=== PATIENT | female | born 1990 | race Caucasian/White ===

== ENCOUNTER 2017-01-17 20:57 | Emergency (ER) | payer BC ==
[~2017-01-17] VITALS: Ht 160 cm; Wt 71.2 kg
[~2017-01-17 20:57] MED LIST: AZIT250T5 PO; CEFT1FRO2 IV; CTLP20T PO; DOXY100C2 PO; DOXY100T2 PO; GUAI118L16; HYDR-3781 PO; HYDR25CA5 PO; METR500T21 PO; PERM60CR4 TP; PRD50T PO; RNT150T PO; SERT50TA9 PO; TRAZ-28 PO; [UNRECOGNIZED DRUG - CODE] TD; rocephin IM/IV
--- NOTE | 2017-01-17 21:09 | ED Cough/URI ---
General Chief Complaint: Fever-Adult/Adol Stated Complaint: FEVER/DIZZINESS Source: patient Exam Limitations: no limitations History of Present Illness Time seen by provider: 21:07 Initial Comments To ER with reports of a fever and dizziness. Fever began yesterday, is consistently over 100 but improves with Tylenol or Motrin. She's had a nonproductive cough since today as well as a sore throat. She denies abdominal pain, diarrhea or constipation, denies vaginal discharge, denies dysuria. Timing/Duration: yesterday Severity/Quality: moderate Associated Symptoms: cough, fever/chills, sore throat Allergies and Home Medications Allergies Coded Allergies: Penicillins (Verified Allergy, Unknown, 07/14/15) Constitutional: see HPI, chills, fever EENTM: see HPI, throat pain Respiratory: see HPI, cough, No hemoptysis, No orthopnea, No phlegm, No short of breath Cardiovascular: no symptoms reported Gastrointestinal: No abdominal pain, No constipation, No diarrhea, No nausea, No vomiting Genitourinary: no symptoms reported, No dysuria, No frequency, No hematuria, No hesitancy : No Musculoskeletal: no symptoms reported Skin: no symptoms reported Psychiatric/Neurological: No Symptoms Reported Hematologic/Lymphatic: No Symptoms Reported Past Meeswvl-Wnbsjc-Rcpiho Hx Patient Social History Type Used: Cigarettes Recent Foreign Travel: No Contact w/Someone Who Travel: No Recent Hopitalizations: No Immunizations Up To Date Tetanus Booster (TDap): More than 5yrs PED Vaccines UTD: No Date of Influenza Vaccine: Jul 17, 2015 Seasonal Allergies Seasonal Allergies: No Surgeries HX Surgeries: Yes Surgeries: Adenoidectomy, Appendectomy Respiratory Hx Respiratory Disorders: No Cardiovascular Hx Cardiac Disorders: Yes (LOW HEART RATE) Neurological Hx Neurological Disorders: No Reproductive System Hx Reproductive Disorders: No Sexually 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Tricamonas, Gonnorhea) HIV/AIDS: No Female Reproductive Disorders: Denies Genitourinary Hx Genitourinary Disorders: No Gastrointestinal Hx Gastrointestinal Disorders: No Gastrointestinal Disorders: Irritable Bowel Musculoskeletal Hx Musculoskeletal Disorders: No Endocrine Hx Endocrine Disorders: No HEENT HX ENT Disorders: No Cancer Hx Cancer: No Psychosocial Hx Psychiatric Problems: Yes (Borderline personality disorder, methamphetamine abuse) Behavioral Health Disorders: Anxiety, Personality Disorder, Depression Integumentary HX Skin/Integumentary Disorder: No Blood Transfusions Hx Blood Disorders: No Adverse Reaction to a Blood Tr: No Family Medical History Significant Family History: No Pertinent Family Hx Family Medial History: Hypertension 19 FATHER Seizure disorder G8 BROTHER Thyroid disease G8 SISTER Physical Exam Vital Signs Vital Sign - Last 12Hours 01/17/17 21:03 Temp 99.0 Pulse 101 Resp 18 B/P (MAP) 118/71 Pulse Ox 96 O2 Delivery Room Air Capillary Refill : General Appearance: WD/WN, no apparent distress Eyes: Bilateral Eye EOMI, Bilateral Eye Normal Inspection, Bilateral Eye PERRL HEENT: PERRL/EOMI, normal ENT inspection Neck: non-tender, full range of motion Respiratory: normal breath sounds, no respiratory distress, no accessory muscle use Cardiovascular: no murmur, tachycardia Gastrointestinal: normal bowel sounds, non tender, soft Extremities: normal range of motion, non-tender Neurologic/Psychiatric: alert, normal mood/affect, oriented x 3 Skin: normal color, warm/dry Progress/Results/Core Measures Results/Orders Lab Results Laboratory Tests Test 01/17/17 21:17 01/17/17 21:21 Range/Units White Blood Count 7.6 4.3-11.0 10^3/uL Red Blood Count 4.21 L 4.35-5.85 10^6/uL Hemoglobin 12.9 11.5-16.0 G/DL Hematocrit 38 35-52 % Mean Corpuscular Volume 89 80-99 FL Mean Corpuscular Hemoglobin 31 25-34 PG Mean Corpuscular Hemoglobin Concent 34 32-36 G/DL Red Cell Distribution Width 12.7 10.0-14.5 % Platelet Count 205 130-400 10^3/uL Mean Platelet Volume 9.4 7.4-10.4 FL Neutrophils (%) (Auto) 79 H 42-75 % Lymphocytes (%) (Auto) 14 12-44 % Monocytes (%) (Auto) 6 0-12 % Eosinophils (%) (Auto) 1 0-10 % Basophils (%) (Auto) 0 0-10 % Neutrophils # (Auto) 6.1 1.8-7.8 X 10^3 Lymphocytes # (Auto) 1.0 1.0-4.0 X 10^3 Monocytes # (Auto) 0.4 0.0-1.0 X 10^3 Eosinophils # (Auto) 0.1 0.0-0.3 10^3/uL Basophils # (Auto) 0.0 0.0-0.1 10^3/uL Sodium Level 137 135-145 MMOL/L Potassium Level 3.6 3.6-5.0 MMOL/L Chloride Level 107 98-107 MMOL/L Carbon Dioxide Level 21 21-32 MMOL/L Anion Gap 9 5-14 MMOL/L Blood Urea Nitrogen 7 7-18 MG/DL Creatinine 0.80 0.60-1.30 MG/DL Estimat Glomerular Filtration Rate > 60 BUN/Creatinine Ratio 9 Glucose Level 113 H 70-105 MG/DL Calcium Level 8.7 8.5-10.1 MG/DL Total Bilirubin 0.6 0.1-1.0 MG/DL Aspartate Amino Transf (AST/SGOT) 28 5-34 U/L Alanine Aminotransferase (ALT/SGPT) 29 0-55 U/L Alkaline Phosphatase 66 40-136 U/L Total Protein 6.8 6.4-8.2 G/DL Albumin 3.9 3.2-4.5 G/DL Monoscreen NEGATIVE NEGATIVE Urine Color YELLOW Urine Clarity CLEAR Urine pH 6 5-9 Urine Specific Mcd[place] 1.015 L 1.016-1.022 Urine Protein 2+ H NEGATIVE Urine Glucose (UA) NEGATIVE NEGATIVE Urine Ketones NEGATIVE NEGATIVE Urine Nitrite NEGATIVE NEGATIVE Urine Bilirubin NEGATIVE NEGATIVE Urine Urobilinogen 1 NORMAL MG/DL Urine Leukocyte Esterase 1+ H NEGATIVE Urine RBC (Auto) 1+ H NEGATIVE Urine RBC 0-2 /HPF Urine WBC 2-5 /HPF Urine Squamous Epithelial Cells 5-10 /HPF Urine Crystals NONE /LPF Urine Bacteria FEW H /HPF Urine Casts NONE /LPF Urine Mucus SMALL H /LPF Urine Culture Indicated NO Urine Opiates Screen NEGATIVE NEGATIVE Urine Oxycodone Screen NEGATIVE NEGATIVE Urine Methadone Screen NEGATIVE NEGATIVE Urine Propoxyphene Screen NEGATIVE NEGATIVE Urine Barbiturates Screen NEGATIVE NEGATIVE Ur Tricyclic Antidepressants Screen NEGATIVE NEGATIVE Urine Phencyclidine Screen NEGATIVE NEGATIVE Urine Amphetamines Screen NEGATIVE NEGATIVE Urine Methamphetamines Screen NEGATIVE NEGATIVE Urine Benzodiazepines Screen NEGATIVE NEGATIVE Urine Cocaine Screen NEGATIVE NEGATIVE Urine Cannabinoids Screen POSITIVE H NEGATIVE My Orders Orders - CLAY JOSE [employer]GETABLE GRADER Cbc With Automated Diff (01/17/17 21:00) Comprehensive Metabolic Panel (01/17/17 21:00) Ua Culture If Indicated (01/17/17 21:00) Urine Bedside (01/17/17 21:00) Saline Lock/Iv-Start (01/17/17 21:00) Monotest (01/17/17 21:00) Drug Screen Stat (Urine) (01/17/17 21:01) Chest Pa/Lat (2 View) (01/17/17 21:07) Blood Culture (01/17/17 21:09) Ns Iv 1000 Ml (Sodium Chloride 0.9%) (01/17/17 21:15) Vital Signs/I&O Vital Sign - Last 12Hours 01/17/17 21:03 Temp 99.0 Pulse 101 Resp 18 B/P (MAP) 118/71 Pulse Ox 96 O2 Delivery Room Air Diagnostic Imaging Diagonstic Imaging: Xray Plain Films/CT/US/NM/MRI: chest Comments NAME: ZORAN SOFIA [facility] REC#: [id number] PT STATUS: REG ER : 1990 PHYSICIAN: CLAY JOSE APRN ADMIT DATE: 01/17/17/ER Signed Date of Exam:01/17/17 CHEST PA/LAT (2 VIEW) INDICATION: Fever, cough with onset 2 days prior.. TECHNIQUE: Two view chest 9:50 PM CORRELATION STUDY: 05/10/2016 FINDINGS: The heart size, mediastinal configuration and pulmonary vasculature are within normal limits. The lungs are clear with no consolidating infiltrate. There is no significant pleural effusion or pneumothorax. Visualized osseous structures are unremarkable. IMPRESSION: 1. Negative for acute abnormality of the chest. Dictated by: Dictated on workstation # [id number] Dict: 01/17/172145 Trans: 01/17/172146 DO [id number] Interpreted by: GIOVANNI POSEY DO Electronically signed by: GIOVANNI POSEY DO 01/17/172146 Departure Communication Progress Notes 2156-alert and oriented and pleasant. Vitals are stable. Discussed the essentially unremarkable lab work with her and male at the bedside. We will let her bag of IV fluids infused then discharged to home with return precautions treating this as a viral syndrome. Impression Impression: Primary Impression: Viral syndrome Disposition: 01 HOME, SELF-CARE Condition: Stable Departure-Patient Inst. Decision time for Depature: 21:52 Referrals: SONALI LEONARDO MD (PCP/Family) Primary Care Physician Patient Instructions: VIRAL SYNDROME Add. Discharge Instructions: 1. Tylenol and Motrin for any pain or fevers 2. Return to ER for any worsening symptoms or other concerns 3. Follow-up with your regular doctor later this week All discharge instructions reviewed with patient and/or family. Voiced understanding. CLAY JOSE APRN January 17, 2017 21:09
[2017-01-17] MEDS ORDERED: NS IV 1000 ML 1,000 ML IV SCH (21:15)
[2017-01-17 21:28] LABS: BASOPHILS % (AUTO) 0 % (0-10); EOSINOPHILS # (AUTO) 0.1 10^3/uL (0.0-0.3); EOSINOPHILS % (AUTO) 1 % (0-10); LYMPHOCYTES % (AUTO) 14 % (12-44); MEAN CORPUSCULAR HEMOGLOBIN 31 PG (25-34); MEAN CORPUSCULAR HGB CONC 34 G/DL (32-36); MEAN CORPUSCULAR VOLUME 89 FL (80-99); MEAN PLATELET VOLUME 9.4 FL (7.4-10.4); MONOCYTES # (AUTO) 0.4 X 10^3 (0.0-1.0); MONOCYTES % (AUTO) 6 % (0-12); NEUTROPHILS # (AUTO) 6.1 X 10^3 (1.8-7.8); NEUTROPHILS % (AUTO) 79 % (42-75); PLATELET COUNT 205 10^3/uL (130-400); RED BLOOD COUNT 4.21 10^6/uL (4.35-5.85); RED CELL DISTRIBUTION WIDTH 12.7 % (10.0-14.5); WHITE BLOOD COUNT 7.6 10^3/uL (4.3-11.0)
[2017-01-17 21:29] LABS: BILIRUBIN,URINE NEGATIVE (NEGATIVE); KETONES,URINE NEGATIVE (NEGATIVE); LEUKOCYTE ESTERASE ,URINE 1+ (NEGATIVE); NITRITE,URINE NEGATIVE (NEGATIVE); PH,URINE 6 (5-9); PROTEIN,URINE 2+ (NEGATIVE); UROBILINOGEN,URINE 1 MG/DL (NORMAL)
[2017-01-17 21:48] LABS: ALANINE AMINOTRANSFERASE 29 U/L (0-55); ALBUMIN 3.9 G/DL (3.2-4.5); ANION GAP 9 MMOL/L (5-14); ASPARTATE AMINO TRANSFERASE 28 U/L (5-34); BILIRUBIN,TOTAL 0.6 MG/DL (0.1-1.0); BLOOD UREA NITROGEN 7 MG/DL (7-18); BUN/CREATININE RATIO 9; CALCIUM 8.7 MG/DL (8.5-10.1); CARBON DIOXIDE 21 MMOL/L (21-32); CHLORIDE 107 MMOL/L (98-107); GFR ESTIMATED > 60; GLUCOSE 113 MG/DL (70-105); POTASSIUM 3.6 MMOL/L (3.6-5.0); SODIUM 137 MMOL/L (135-145); TOTAL PROTEIN 6.8 G/DL (6.4-8.2)
--- NOTE | 2017-01-17 21:50 | Diagnostic Imaging Report ---
INDICATION: Fever, cough with onset 2 days prior.. TECHNIQUE: Two view chest 9:50 PM CORRELATION STUDY: 05/10/2016 FINDINGS: The heart size, mediastinal configuration and pulmonary vasculature are within normal limits. The lungs are clear with no consolidating infiltrate. There is no significant pleural effusion or pneumothorax. Visualized osseous structures are unremarkable. IMPRESSION: 1. Negative for acute abnormality of the chest. Dictated by: Dictated on workstation # [id number]
[2017-01-17 22:20] VITALS: BP 108/68
== END 2017-01-17 22:22 | disposition home or self-care (01) ==
LOC: EDUNIT# 20:57 → ER 20:59
DX: B34.9 Viral infection, unspecified (principal); R42 Dizziness and giddiness; R50.9 Fever, unspecified
CPT/HCPCS: 36415; 71020; 80053; 80306; 81000; 84703; 85025; 86308; 87040; 96360

== ENCOUNTER → 2017-03-25 | Emergency (ER) | payer BC ==
[~2017-03-25] VITALS: Ht 160 cm; Wt 65.8 kg
[~2017-03-25] MED LIST changes: +NS IV 500 ML 500 ML IV ONE
--- NOTE | 2017-03-25 01:57 | ED Syncope ---
General Chief Complaint: Head/Cervical Problems Stated Complaint: PASSED OUT ON [id number],NAUSEA,LIGHT HEADED Nursing Triage Note: patient reports passed out and hit her head at 1600 on 03/24. patient reports going to sleep and when she woke up she remained to have nausea and a headache Source of Information: Patient, Other Exam Limitations: No Limitations History of Present Illness Time Seen by Provider: 01:53 Initial Comments Patient reports the past 2-3 days she has felt malaise but no pain, shortness of breath, chest pain, dysuria, constipation, diarrhea, rash, fever, chills. She has felt sweaty at night and earlier in the evening around 4:00 she passed out and fell. She states she has not had her head and was immediately awoke again. She is not having any amnesia. She's went to have something to eat but that didn't make her feeling better. She has no medical issues. She's not had any medicines. She smokes about a pack a day. She feels that she is maybe a little dehydrated. No useful family history. No one around has been sick and she has not traveled or drank out of any unsafe water sources. She remarks she has been drinking less fluids lately. Allergies and Home Medications Allergies Coded Allergies: Penicillins (Verified Allergy, Unknown, 07/14/15) Home Medications No Active Prescriptions or Reported Meds Constitutional: No chills, No diaphoresis, No fever EENTM: No ear pain, No eye pain, No nose congestion, No nose pain Respiratory: No cough, No short of breath Cardiovascular: No chest pain, No edema Gastrointestinal: No abdominal pain, No constipation, No diarrhea, No nausea Genitourinary: No discharge, No dysuria : No (2 negative tests at home in the past day.) Control/STD Prophylaxis: None Musculoskeletal: No back pain, No joint pain Skin: No pruritus, No rash Psychiatric/Neurological: Denies Headache, Denies Numbness, Denies Paresthesia , Denies Seizure Past Whzxjsk-Hehvgt-Hpnvmu Hx Patient Social History Alcohol Use: Occasionally Uses Recreational Drug Use: No (history of meth) Smoking Status: Current Everyday Smoker Type Used: Cigarettes 2nd Hand Smoke Exposure: Yes Recent Foreign Travel: No Contact w/Someone Who Travel: No Recent Infectious Disease Expo: No Recent Hopitalizations: No Immunizations Up To Date Tetanus Booster (TDap): More than 5yrs PED Vaccines UTD: No Date of Influenza Vaccine: Jul 17, 2015 Seasonal Allergies Seasonal Allergies: No Surgeries HX Surgeries: Yes Surgeries: Adenoidectomy, Appendectomy Respiratory Hx Respiratory Disorders: No Cardiovascular Hx Cardiac Disorders: Yes (LOW HEART RATE) Neurological Hx Neurological Disorders: No Reproductive System Hx Reproductive Disorders: No Sexually 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Tricamonas, Gonnorhea) HIV/AIDS: No Female Reproductive Disorders: Denies Genitourinary Hx Genitourinary Disorders: No Gastrointestinal Hx Gastrointestinal Disorders: No Gastrointestinal Disorders: Irritable Bowel Musculoskeletal Hx Musculoskeletal Disorders: No Endocrine Hx Endocrine Disorders: No HEENT HX ENT Disorders: No Cancer Hx Cancer: No Psychosocial Hx Psychiatric Problems: Yes (Borderline personality disorder, methamphetamine abuse) Behavioral Health Disorders: Anxiety, Personality Disorder, Depression Integumentary HX Skin/Integumentary Disorder: No Blood Transfusions Hx Blood Disorders: No Adverse Reaction to a Blood Tr: No Family Medical History Significant Family History: No Pertinent Family Hx Family Medial History: Hypertension 19 FATHER Seizure disorder G8 BROTHER Thyroid disease G8 SISTER Physical Exam Vital Signs Vital Sign - Last 12Hours 03/25/17 03/25/17 01:35 03:20 Temp 97.5 Pulse 55 Resp 18 B/P (MAP) 109/72 Pulse Ox 98 O2 Delivery Room Air Capillary Refill : Less Than 3 Seconds General Appearance: No Apparent Distress, WD/WN HEENT: PERRL/EOMI, TMs Normal, Normal ENT Inspection, Pharynx Normal Neck: Full Range of Motion, Supple Cardiovascular: Regular Rate, Rhythm, No Edema, No Gallop, No Murmur, Normal Peripheral Pulses Respiratory: Chest Non Tender, Lungs Clear, Normal Breath Sounds Gastrointestinal: Normal Bowel Sounds, Non Tender, Soft Back: Normal Inspection, No CVA Tenderness Extremities: Normal Capillary Refill, No Pedal Edema Neurologic/Psychiatric: Alert, Oriented x3, credit review manager II-XII Norm as Tested Cranial Nerves: Normal Hearing, Normal Speech Coordination/Gait: Normal Gait Motor/Sensory: No Motor Deficit, No Sensory Deficit Skin: Normal Color, Warm/Dry Lymphatic: No Adenopathy Progress/Results/Core Measures Results/Orders Lab Results Laboratory Tests Test 03/25/17 02:00 03/25/17 02:10 Range/Units Urine Color YELLOW Urine Clarity CLEAR Urine pH 6 5-9 Urine Specific [place] 1.020 1.016-1.022 Urine Protein 1+ H NEGATIVE Urine Glucose (UA) NEGATIVE NEGATIVE Urine Ketones NEGATIVE NEGATIVE Urine Nitrite NEGATIVE NEGATIVE Urine Bilirubin NEGATIVE NEGATIVE Urine Urobilinogen NORMAL NORMAL MG/DL Urine Leukocyte Esterase 1+ H NEGATIVE Urine RBC (Auto) NEGATIVE NEGATIVE Urine RBC NONE /HPF Urine WBC RARE /HPF Urine Squamous Epithelial Cells 2-5 /HPF Urine Crystals NONE /LPF Urine Bacteria TRACE /HPF Urine Casts NONE /LPF Urine Mucus SMALL H /LPF Urine Culture Indicated NO White Blood Count 10.1 4.3-11.0 10^3/uL Red Blood Count 4.04 L 4.35-5.85 10^6/uL Hemoglobin 12.0 11.5-16.0 G/DL Hematocrit 36 35-52 % Mean Corpuscular Volume 90 80-99 FL Mean Corpuscular Hemoglobin 30 25-34 PG Mean Corpuscular Hemoglobin Concent 33 32-36 G/DL Red Cell Distribution Width 12.8 10.0-14.5 % Platelet Count 280 130-400 10^3/uL Mean Platelet Volume 9.3 7.4-10.4 FL Neutrophils (%) (Auto) 40 L 42-75 % Lymphocytes (%) (Auto) 48 H 12-44 % Monocytes (%) (Auto) 7 0-12 % Eosinophils (%) (Auto) 5 0-10 % Basophils (%) (Auto) 1 0-10 % Neutrophils # (Auto) 4.1 1.8-7.8 X 10^3 Lymphocytes # (Auto) 4.8 H 1.0-4.0 X 10^3 Monocytes # (Auto) 0.7 0.0-1.0 X 10^3 Eosinophils # (Auto) 0.5 H 0.0-0.3 10^3/uL Basophils # (Auto) 0.1 0.0-0.1 10^3/uL Sodium Level 141 135-145 MMOL/L Potassium Level 3.5 L 3.6-5.0 MMOL/L Chloride Level 108 H 98-107 MMOL/L Carbon Dioxide Level 22 21-32 MMOL/L Anion Gap 11 5-14 MMOL/L Blood Urea Nitrogen 13 7-18 MG/DL Creatinine 0.82 0.60-1.30 MG/DL Estimat Glomerular Filtration Rate > 60 BUN/Creatinine Ratio 16 Glucose Level 110 H 70-105 MG/DL Calcium Level 9.2 8.5-10.1 MG/DL Magnesium Level 2.4 1.8-2.4 MG/DL Total Bilirubin 0.4 0.1-1.0 MG/DL Aspartate Amino Transf (AST/SGOT) 15 5-34 U/L Alanine Aminotransferase (ALT/SGPT) 13 0-55 U/L Alkaline Phosphatase 67 40-136 U/L C-Reactive Protein High Sensitivity 0.08 0.00-0.50 MG/DL Total Protein 7.0 6.4-8.2 GM/DL Albumin 4.1 3.2-4.5 GM/DL My Orders Orders - GINGER LEACH Cbc With Automated Diff (03/25/17 01:57) Comprehensive Metabolic Panel (03/25/17 01:57) Hs C Reactive Protein (03/25/17 01:57) Magnesium (03/25/17 01:57) Ua Culture If Indicated (03/25/17 01:57) Urine Bedside (03/25/17 01:57) Saline Lock/Iv-Start (03/25/17 01:57) Ns Iv 500 Ml (Sodium Chloride 0.9%) (03/25/17 01:57) Medications Given in ED Current Medications Medications Dose Ordered Sig/Eloy Route Start Time Stop Time Status Last Admin Dose Admin Sodium Chloride 500 ml @ 0 mls/hr Q0M ONCE IV 03/25/17 01:57 03/25/17 01:59 DC 03/25/17 02:12 0 MLS/HR Vital Signs/I&O Vital Sign - Last 12Hours 03/25/17 03/25/17 01:35 03:20 Temp 97.5 Pulse 55 68 Resp 18 20 B/P (MAP) 109/72 Pulse Ox 98 100 O2 Delivery Room Air Blood Pressure Mean: 84 Progress Note : Time: 03:08 Progress Note Labs, exam and urine did not demonstrate any evidence of infection. Patient's sugars are normal. She has no history of diabetes. HCG was negative. We have given her some fluids and she says she feels better so we'll let her go home some strict return precautions. She had a fall and passed out but there is no neurologic symptoms and sugars does not have a contusion or other evidence of external head injury. At this time would not image her head unless she changes from her baseline. Departure Impression Impression: Primary Impression: Syncope, vasovagal Additional Impression: Dehydration Disposition: 01 HOME, SELF-CARE Condition: Improved Departure-Patient Inst. Decision time for Depature: 03:16 Referrals: SONALI LEONARDO MD (PCP/Family) Primary Care Physician Patient Instructions: Syncope (Fainting) (DC) Add. Discharge Instructions: I suspect that you are dehydrated. You should be encouraged to drink plenty of fluids. Eat some bananas or drink some Gatorade as her potassium was mildly low. He should also decrease or quit smoking altogether. If your symptoms continue despite these interventions you should follow-up with Dr. Leonardo. If you have other concerns he should also follow-up with Dr. Leonardo. If he started having new or worrisome symptoms such as a high fever or nausea and vomiting or chest pain or shortness of breath he should return to the ER immediately. All discharge instructions reviewed with patient and/or family. Voiced understanding. Scripts No Active Prescriptions or Reported Meds Copy Copies To 1: SONALI LEONARDO MD, TITUS J Mar 25, 2017 01:57
[2017-03-25 02:08] LABS: BILIRUBIN,URINE NEGATIVE (NEGATIVE); KETONES,URINE NEGATIVE (NEGATIVE); LEUKOCYTE ESTERASE ,URINE 1+ (NEGATIVE); NITRITE,URINE NEGATIVE (NEGATIVE); PH,URINE 6 (5-9); PROTEIN,URINE 1+ (NEGATIVE); UROBILINOGEN,URINE NORMAL (NORMAL)
[2017-03-25 02:15] LABS: WBC,URINE RARE /HPF
[2017-03-25 02:18] LABS: BASOPHILS # (AUTO) 0.1 10^3/uL (0.0-0.1); BASOPHILS % (AUTO) 1 % (0-10); EOSINOPHILS # (AUTO) 0.5 10^3/uL (0.0-0.3); EOSINOPHILS % (AUTO) 5 % (0-10); LYMPHOCYTES # (AUTO) 4.8 X 10^3 (1.0-4.0); LYMPHOCYTES % (AUTO) 48 % (12-44); MEAN CORPUSCULAR HEMOGLOBIN 30 PG (25-34); MEAN CORPUSCULAR HGB CONC 33 G/DL (32-36); MEAN CORPUSCULAR VOLUME 90 FL (80-99); MEAN PLATELET VOLUME 9.3 FL (7.4-10.4); MONOCYTES # (AUTO) 0.7 X 10^3 (0.0-1.0); MONOCYTES % (AUTO) 7 % (0-12); NEUTROPHILS # (AUTO) 4.1 X 10^3 (1.8-7.8); NEUTROPHILS % (AUTO) 40 % (42-75); PLATELET COUNT 280 10^3/uL (130-400); RED BLOOD COUNT 4.04 10^6/uL (4.35-5.85); RED CELL DISTRIBUTION WIDTH 12.8 % (10.0-14.5); WHITE BLOOD COUNT 10.1 10^3/uL (4.3-11.0)
[2017-03-25 02:46] LABS: ALANINE AMINOTRANSFERASE 13 U/L (0-55); ALBUMIN 4.1 GM/DL (3.2-4.5); ANION GAP 11 MMOL/L (5-14); ASPARTATE AMINO TRANSFERASE 15 U/L (5-34); BILIRUBIN,TOTAL 0.4 MG/DL (0.1-1.0); BLOOD UREA NITROGEN 13 MG/DL (7-18); BUN/CREATININE RATIO 16; CALCIUM 9.2 MG/DL (8.5-10.1); CARBON DIOXIDE 22 MMOL/L (21-32); CHLORIDE 108 MMOL/L (98-107); CREATININE SERUM 0.82 MG/DL (0.60-1.30); GFR ESTIMATED > 60; GLUCOSE 110 MG/DL (70-105); MAGNESIUM 2.4 MG/DL (1.8-2.4); POTASSIUM 3.5 MMOL/L (3.6-5.0); SODIUM 141 MMOL/L (135-145); hs C REACTIVE PROTEIN 0.08 MG/DL (0.00-0.50)
[2017-03-25 03:20] VITALS: BP 108/62
--- OUTSIDE RECORDS SUMMARY | 2017-03-28 08:39 | XMS REPORT | Continuity of Care Document ---
Author Author [employer] Organization [facility] Address Unknown Phone Unavailable Care Team Providers Care Filling Machine Set Up Mechanic Name Role Phone [employer] Unavailable Unavailable Problems Problem Status Onset Date Classification Date Reported Comments Source Tobacco user (finding) Active Problem 08/02/2013 1Added by Discern Expert based on Social History Documentation [facility] Medications Allergies, Adverse Reactions, Alerts Substance Category Reaction Severity Reaction type Status Date Reported Comments Source penicillin drug allergy Allergy Active [employer], [facility] Immunizations Results Vital Signs Encounters Location Location Details Encounter Type Encounter Number Reason For Visit Attending Provider ADM Date DC Date Status Source [facility] [id number] Emergency [id number] Evgeny Campbell 05/05/2013 05/05/2013 Active [employer] [facility] [id number] Emergency [id number] ROCK FISHER 05/31/2013 Active [facility] [facility] [id number] Emergency [id number] Kayden Conrad 06/19/2013 Active [employer] [facility] [id number] Emergency [id number] Kayden Conrad 06/19/2013 Active [employer] [facility] [id number] Emergency [id number] Kayden Conrad 06/20/2013 Active [employer] [facility] [id number] Emergency [id number] Kayden Conrad 06/20/2013 Active [facility] [facility] [id number] Emergency [id number] Zaid Henriquez 06/21/2013 06/21/2013 Active [facility] [id number] Emergency [id number] Nancy Macdonald 07/08/2013 07/08/2013 Active [facility] [id number] Emergency [id number] Evgeny Campbell 07/28/2013 07/28/2013 [facility] Procedures Plan of Care Social History Assessment and Plan Family History Value Date Source Advance Directives Order Name Results Value Date Source
--- OUTSIDE RECORDS SUMMARY | 2017-03-28 08:40 | XMS REPORT | Continuity of Care Document ---
Author Author [facility] Organization [facility] Address Unknown Phone Unavailable Allergies Active Description Code Type Severity Reaction Onset Reported/Identified Relationship to Patient Clinical Status Yes No Known Drug Allergies [id number] Drug Allergy Unknown N/ A 10/27/2011 Yes Penicillins [id number] Drug Allergy Unknown N/A 07/14/2015 Medications Problems Date Dx Coded Attending Type Code Diagnosis Diagnosed By 10/28/2011 Ot 708.9 URTICARIA NOS 02/24/2012 Ot 845.00 SPRAIN OF ANKLE NOS 02/24/2012 Ot 959.7 LOWER LEG INJURY NOS 02/24/2012 Ot E000.8 OTHER EXTERNAL CAUSE STATUS 02/24/2012 Ot E007.3 ACTIVITIES INVOLVING BASEBALL 02/24/2012 Ot E849.4 ACCID IN RECREATION AREA 02/24/2012 Ot E927.0 OVEREXERTION FROM SUDDEN STRENUOUS MOVEM 07/17/2015 JORDEN ROE, SONALI R Ot A59.01 07/17/2015 SONALI LEONARDO MD R Ot F17.210 07/17/2015 SONALI LEONARDO MD R Ot N73.9 07/17/2015 SONALI LEONARDO MD Ot 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 07/17/2015 SONALI LEONARDO MD R Ot F17.210 NICOTINE DEPENDENCE, CIGARETTES, UNCOMPL 07/17/2015 JORDEN ROE, SONALI R Ot N73.9 FEMALE PELVIC INFLAMMATORY DISEASE, UNSP 07/17/2015 JORDEN ROE, SONALI R Ot Z23 ENCOUNTER FOR IMMUNIZATION 07/21/2015 JORDEN ROE, SONALI Velasco Ot D64.9 ANEMIA, UNSPECIFIED 07/21/2015 SONALI LEONARDO MD R Ot E87.6 HYPOKALEMIA 07/21/2015 SONALI LEONARDO MD R Ot F17.210 NICOTINE DEPENDENCE, CIGARETTES, UNCOMPL 07/21/2015 JORDEN ROE, SONALI R Ot F32.9 MAJOR DEPRESSIVE DISORDER, SINGLE EPISOD 07/21/2015 JORDEN ROE, SONALI R Ot F41.9 ANXIETY DISORDER, UNSPECIFIED 07/21/2015 JORDEN ROE, SONALI R Ot I49.5 SICK SINUS SYNDROME 07/21/2015 JORDEN ROE, SOANLI R Ot J90 PLEURAL EFFUSION, NOT ELSEWHERE CLASSIFI 07/21/2015 SONALI LEONARDO MD R Ot K81.2 ACUTE CHOLECYSTITIS WITH CHRONIC CHOLECY 07/21/2015 SONALI LEONARDO MD R Ot N73.9 FEMALE PELVIC INFLAMMATORY DISEASE, UNSP 07/21/2015 SONALI LEONARDO MD R Ot R09.02 HYPOXEMIA 07/21/2015 SONALI LEONARDO MD R Ot Z82.49 FAMILY HX OF ISCHEM HEART DIS AND OTH DI 05/12/2016 SONALI LEONARDO MD R Ot E87.6 HYPOKALEMIA 05/12/2016 JORDEN ROE, SONALI R Ot 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, 05/12/2016 SONALI LEONARDO MD R Ot F41.9 ANXIETY DISORDER, UNSPECIFIED 05/12/2016 SONALI LEONARDO MD R Ot G24.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 05/12/2016 SONALI LEONARDO MD R Ot L73.2 HIDRADENITIS SUPPURATIVA 01/17/2017 CLAY JOSE APRN Ot B34.9 VIRAL INFECTION, UNSPECIFIED 01/17/2017 CLAY JOSE APRN Ot J02.9 ACUTE PHARYNGITIS, UNSPECIFIED 01/17/2017 CLAY JOSE APRN Ot R42 DIZZINESS AND GIDDINESS 01/17/2017 CLAY JOSE APRN Ot R50.9 FEVER, UNSPECIFIED 01/18/2017 CLAY JOSE APRN Ot B34.9 VIRAL INFECTION, UNSPECIFIED 01/18/2017 CLAY JOSE APRN Ot J02.9 ACUTE PHARYNGITIS, UNSPECIFIED 01/18/2017 CLAY JOSE APRN Ot R42 DIZZINESS AND GIDDINESS 01/18/2017 CLAY JOSE APRN Ot R50.9 FEVER, UNSPECIFIED Procedures Code Description Performed By Performed On [id number] RESECTION OF GALLBLADDER, PERCUTANEOUS E 07/19/2015 [id number] RESPIRATORY VENTILATION, LESS THAN 24 CO 07/19/2015 Results Test Result Range Serum or plasma C reactive protein measurement (mass/volume) - 05/10/16 11:30 Serum or plasma C reactive protein measurement (mass/volume) 0.67 mg/dL 0.00-0.50 Complete blood count (CBC) with automated white blood cell (WBC) differential - 05/10/16 11:50 Blood leukocytes automated count (number/volume) 16.1 10*3/ uL 4.3-11.0 Blood erythrocytes automated count (number/volume) 4.43 10*6 /uL 4.35-5.85 Venous blood hemoglobin measurement (mass/volume) 13.6 g/dL 11.5-16.0 Blood hematocrit (volume fraction) 39 % 35-52 Automated erythrocyte mean corpuscular volume 87 [foz_us] 80-99 Automated erythrocyte mean corpuscular hemoglobin (mass per erythrocyte) 31 pg 25-34 Automated erythrocyte mean corpuscular hemoglobin concentration measurement ( mass/volume) 35 g/dL 32-36 Automated erythrocyte distribution width ratio 12.7 % 10.0-14.5 Automated blood platelet count (count/volume) 318 10*3/uL 130-400 Automated blood platelet mean volume measurement 9.6 [foz_us ] 7.4-10.4 Automated blood neutrophils/100 leukocytes 63 % 42-75 Automated blood lymphocytes/100 leukocytes 27 % 12-44 Blood monocytes/100 leukocytes 7 % 0-12 Automated blood eosinophils/100 leukocytes 3 % 0-10 Automated blood basophils/100 leukocytes 0 % 0-10 Blood neutrophils automated count (number/volume) 10.2 10*3 1.8-7.8 Blood lymphocytes automated count (number/volume) 4.3 10*3 1.0-4.0 Blood monocytes automated count (number/volume) 1.1 10*3 0.0-1.0 Automated eosinophil count 0.6 10*3/uL 0.0-0.3 Automated blood basophil count (count/volume) 0.1 10*3/uL 0.0-0.1 Serum or plasma choriogonadotropin ( test) detection - 05/10/16 11:50 Serum or plasma choriogonadotropin ( test) detection NEGATIVE NEGATIVE Comprehensive metabolic panel - 05/10/16 11:50 Serum or plasma sodium measurement (moles/volume) 136 mmol/ L 135-145 Serum or plasma potassium measurement (moles/volume) 3.1 mmol/L 3.6-5.0 Serum or plasma chloride measurement (moles/volume) 104 mmol /L 98-107 Carbon dioxide 21 mmol/L 21-32 Serum or plasma anion gap determination (moles/volume) 11 mmol/L 5-14 Serum or plasma urea nitrogen measurement (mass/volume) 8 mg /dL 7-18 Serum or plasma creatinine measurement (mass/volume) 0.76 mg /dL 0.60-1.30 Serum or plasma urea nitrogen/creatinine mass ratio 11 NRG Serum or plasma creatinine measurement with calculation of estimated glomerular filtration rate > NRG Serum or plasma glucose measurement (mass/volume) 103 mg/dL 70-105 Serum or plasma calcium measurement (mass/volume) 9.7 mg/dL 8.5-10.1 Serum or plasma total bilirubin measurement (mass/volume) 1.0 mg/dL 0.1-1.0 Serum or plasma alkaline phosphatase measurement (enzymatic activity/volume) 91 U/L 40-136 Serum or plasma aspartate aminotransferase measurement (enzymatic activity/ volume) 17 U/L 5-34 Serum or plasma alanine aminotransferase measurement (enzymatic activity/volume ) 18 U/L 0-55 Serum or plasma protein measurement (mass/volume) 7.6 g/dL 6.4-8.2 Serum or plasma albumin measurement (mass/volume) 4.4 g/dL 3.2-4.5 Serum or plasma creatine kinase measurement (enzymatic activity/volume) - 05/10 11:50 Serum or plasma creatine kinase measurement (enzymatic activity/volume) 74 U/L 29-168 Serum or plasma troponin i.cardiac measurement (mass/volume) - 05/10/16 11:50 Serum or plasma troponin i.cardiac measurement (mass/volume) < ng/mL <0.30 Serum or plasma salicylates measurement (mass/volume) - 05/10/16 11:50 Serum or plasma salicylates measurement (mass/volume) < mg/ dL 5.0-20.0 Serum or plasma acetaminophen measurement (mass/volume) - 05/10/16 11:50 Serum or plasma acetaminophen measurement (mass/volume) < ug /mL 10-30 Serum or plasma ethanol measurement (mass/volume) - 05/10/16 11:50 Serum or plasma ethanol measurement (mass/volume) < mg/dL <10 Blood manual differential performed detection - 05/10/16 11:50 Blood monocytes/100 leukocytes 3 % NRG Manual blood segmented neutrophils/100 leukocytes 59 % NRG Blood band neutrophils/100 leukocytes 0 % NRG Manual blood lymphocytes/100 leukocytes 33 % NRG Manual eosinophils/100 leukocytes in nose 5 % NRG Manual blood basophils/100 leukocytes 0 % NRG Blood erythrocyte morphology finding identification NORMAL NRG Capillary blood glucose measurement by glucometer (mass/volume) - 05/10/16 12: 00 Capillary blood glucose measurement by glucometer (mass/volume) 104 mg/dL 70-110 Urine drug screening test - 05/10/16 12:20 Urine acetaminophen detection by screening method NEGATIVE NEGATIVE Urine phencyclidine detection by screening method NEGATIVE NEGATIVE Urine benzodiazepines detection by screening method NEGATIVE NEGATIVE Urine cocaine detection NEGATIVE NEGATIVE Urine amphetamines detection by screening method NEGATIVE NEGATIVE Urine methamphetamine detection by screening method POSITIVE NEGATIVE Urine cannabinoids detection by screening method NEGATIVE NEGATIVE Urine opiates detection by screening method NEGATIVE NEGATIVE Urine barbiturates detection NEGATIVE NEGATIVE Screening urine tricyclic antidepressants detection NEGATIVE NEGATIVE Urine methadone detection by screening method NEGATIVE NEGATIVE Bacterial blood culture - 05/10/16 12:50 QUANTITY OF GROWTH Isolated NRG Bacterial blood culture [id number] NRG Bacterial blood culture - 05/10/16 13:39 Bacterial blood culture NG NRG Methicillin resistant Staphylococcus aureus (MRSA) screening culture - 17:44 MRSA SCREEN RESULT MRSA ISOLATED NRG Complete blood count (CBC) with automated white blood cell (WBC) differential - 05/11/16 03:55 Blood leukocytes automated count (number/volume) 8.1 10*3/ uL 4.3-11.0 Blood erythrocytes automated count (number/volume) 3.69 10*6 /uL 4.35-5.85 Venous blood hemoglobin measurement (mass/volume) 11.2 g/dL 11.5-16.0 Blood hematocrit (volume fraction) 34 % 35-52 Automated erythrocyte mean corpuscular volume 91 [foz_us] 80-99 Automated erythrocyte mean corpuscular hemoglobin (mass per erythrocyte) 30 pg 25-34 Automated erythrocyte mean corpuscular hemoglobin concentration measurement ( mass/volume) 33 g/dL 32-36 Automated erythrocyte distribution width ratio 12.8 % 10.0-14.5 Automated blood platelet count (count/volume) 246 10*3/uL 130-400 Automated blood platelet mean volume measurement 9.7 [foz_us ] 7.4-10.4 Automated blood neutrophils/100 leukocytes 38 % 42-75 Automated blood lymphocytes/100 leukocytes 50 % 12-44 Blood monocytes/100 leukocytes 8 % 0-12 Automated blood eosinophils/100 leukocytes 4 % 0-10 Automated blood basophils/100 leukocytes 0 % 0-10 Blood neutrophils automated count (number/volume) 3.0 10*3 1.8-7.8 Blood lymphocytes automated count (number/volume) 4.0 10*3 1.0-4.0 Blood monocytes automated count (number/volume) 0.6 10*3 0.0-1.0 Automated eosinophil count 0.3 10*3/uL 0.0-0.3 Automated blood basophil count (count/volume) 0.0 10*3/uL 0.0-0.1 Comprehensive metabolic panel - 05/11/16 03:55 Serum or plasma sodium measurement (moles/volume) 139 mmol/ L 135-145 Serum or plasma potassium measurement (moles/volume) 4.1 mmol/L 3.6-5.0 Serum or plasma chloride measurement (moles/volume) 114 mmol /L 98-107 Carbon dioxide 18 mmol/L 21-32 Serum or plasma anion gap determination (moles/volume) 7 mmol/L 5-14 Serum or plasma urea nitrogen measurement (mass/volume) 5 mg /dL 7-18 Serum or plasma creatinine measurement (mass/volume) 0.66 mg /dL 0.60-1.30 Serum or plasma urea nitrogen/creatinine mass ratio 8 NRG Serum or plasma creatinine measurement with calculation of estimated glomerular filtration rate > NRG Serum or plasma glucose measurement (mass/volume) 103 mg/dL 70-105 Serum or plasma calcium measurement (mass/volume) 8.5 mg/dL 8.5-10.1 Serum or plasma total bilirubin measurement (mass/volume) 0.4 mg/dL 0.1-1.0 Serum or plasma alkaline phosphatase measurement (enzymatic activity/volume) 60 U/L 40-136 Serum or plasma aspartate aminotransferase measurement (enzymatic activity/ volume) 11 U/L 5-34 Serum or plasma alanine aminotransferase measurement (enzymatic activity/volume ) 12 U/L 0-55 Serum or plasma protein measurement (mass/volume) 5.5 g/dL 6.4-8.2 Serum or plasma albumin measurement (mass/volume) 3.3 g/dL 3.2-4.5 Complete blood count (CBC) with automated white blood cell (WBC) differential - 01/17/17 21:17 Blood leukocytes automated count (number/volume) 7.6 10*3/ uL 4.3-11.0 Blood erythrocytes automated count (number/volume) 4.21 10*6 /uL 4.35-5.85 Venous blood hemoglobin measurement (mass/volume) 12.9 g/dL 11.5-16.0 Blood hematocrit (volume fraction) 38 % 35-52 Automated erythrocyte mean corpuscular volume 89 [foz_us] 80-99 Automated erythrocyte mean corpuscular hemoglobin (mass per erythrocyte) 31 pg 25-34 Automated erythrocyte mean corpuscular hemoglobin concentration measurement ( mass/volume) 34 g/dL 32-36 Automated erythrocyte distribution width ratio 12.7 % 10.0-14.5 Automated blood platelet count (count/volume) 205 10*3/uL 130-400 Automated blood platelet mean volume measurement 9.4 [foz_us ] 7.4-10.4 Automated blood neutrophils/100 leukocytes 79 % 42-75 Automated blood lymphocytes/100 leukocytes 14 % 12-44 Blood monocytes/100 leukocytes 6 % 0-12 Automated blood eosinophils/100 leukocytes 1 % 0-10 Automated blood basophils/100 leukocytes 0 % 0-10 Blood neutrophils automated count (number/volume) 6.1 10*3 1.8-7.8 Blood lymphocytes automated count (number/volume) 1.0 10*3 1.0-4.0 Blood monocytes automated count (number/volume) 0.4 10*3 0.0-1.0 Automated eosinophil count 0.1 10*3/uL 0.0-0.3 Automated blood basophil count (count/volume) 0.0 10*3/uL 0.0-0.1 Serum heterophile antibody titer - 01/17/17 21:17 Serum heterophile antibody titer NEGATIVE NEGATIVE Comprehensive metabolic panel - 01/17/17 21:17 Serum or plasma sodium measurement (moles/volume) 137 mmol/ L 135-145 Serum or plasma potassium measurement (moles/volume) 3.6 mmol/L 3.6-5.0 Serum or plasma chloride measurement (moles/volume) 107 mmol /L 98-107 Carbon dioxide 21 mmol/L 21-32 Serum or plasma anion gap determination (moles/volume) 9 mmol/L 5-14 Serum or plasma urea nitrogen measurement (mass/volume) 7 mg /dL 7-18 Serum or plasma creatinine measurement (mass/volume) 0.80 mg /dL 0.60-1.30 Serum or plasma urea nitrogen/creatinine mass ratio 9 NRG Serum or plasma creatinine measurement with calculation of estimated glomerular filtration rate > NRG Serum or plasma glucose measurement (mass/volume) 113 mg/dL 70-105 Serum or plasma calcium measurement (mass/volume) 8.7 mg/dL 8.5-10.1 Serum or plasma total bilirubin measurement (mass/volume) 0.6 mg/dL 0.1-1.0 Serum or plasma alkaline phosphatase measurement (enzymatic activity/volume) 66 U/L 40-136 Serum or plasma aspartate aminotransferase measurement (enzymatic activity/ volume) 28 U/L 5-34 Serum or plasma alanine aminotransferase measurement (enzymatic activity/volume ) 29 U/L 0-55 Serum or plasma protein measurement (mass/volume) 6.8 g/dL 6.4-8.2 Serum or plasma albumin measurement (mass/volume) 3.9 g/dL 3.2-4.5 Complete urinalysis with reflex to culture - 01/17/17 21:21 Urine color determination YELLOW NRG Urine clarity determination CLEAR NRG Urine pH measurement by test strip 6 5- 9 Specific gravity of urine by test strip 1.015 1.016-1.022 Urine protein assay by test strip, semi-quantitative 2+ NEGATIVE Urine glucose detection by automated test strip NEGATIVE NEGATIVE Erythrocytes detection in urine sediment by light microscopy 1+ NEGATIVE Urine ketones detection by automated test strip NEGATIVE NEGATIVE Urine nitrite detection by test strip NEGATIVE NEGATIVE Urine total bilirubin detection by test strip NEGATIVE NEGATIVE Urine urobilinogen measurement by automated test strip (mass/volume) 1 mg/dL NORMAL Urine leukocyte esterase detection by dipstick 1+ NEGATIVE Automated urine sediment erythrocyte count by microscopy (number/high power field) [HPF] NRG Automated urine sediment leukocyte count by microscopy (number/high power field ) [HPF] NRG Bacteria detection in urine sediment by light microscopy FEW NRG Squamous epithelial cells detection in urine sediment by light microscopy 5-10 NRG Crystals detection in urine sediment by light microscopy NONE NRG Casts detection in urine sediment by light microscopy NONE NRG Mucus detection in urine sediment by light microscopy SMALL NRG Complete urinalysis with reflex to culture NO NRG Urine drug screening test - 01/17/17 21:21 Urine phencyclidine detection by screening method NEGATIVE NEGATIVE Urine benzodiazepines detection by screening method NEGATIVE NEGATIVE Urine cocaine detection NEGATIVE NEGATIVE Urine amphetamines detection by screening method NEGATIVE NEGATIVE Urine methamphetamine detection by screening method NEGATIVE NEGATIVE Urine cannabinoids detection by screening method POSITIVE NEGATIVE Urine opiates detection by screening method NEGATIVE NEGATIVE Urine barbiturates detection NEGATIVE NEGATIVE Screening urine tricyclic antidepressants detection NEGATIVE NEGATIVE Urine methadone detection by screening method NEGATIVE NEGATIVE Urine oxycodone detection NEGATIVE NEGATIVE Urine propoxyphene detection NEGATIVE NEGATIVE Bacterial blood culture - 01/17/17 21:21 Bacterial blood culture NG NRG Bacterial blood culture - 01/17/17 21:23 Bacterial blood culture NG NRG Complete urinalysis with reflex to culture - 03/25/17 02:00 Urine color determination YELLOW NRG Urine clarity determination CLEAR NRG Urine pH measurement by test strip 6 5- 9 Specific gravity of urine by test strip 1.020 1.016-1.022 Urine protein assay by test strip, semi-quantitative 1+ NEGATIVE Urine glucose detection by automated test strip NEGATIVE NEGATIVE Erythrocytes detection in urine sediment by light microscopy NEGATIVE NEGATIVE Urine ketones detection by automated test strip NEGATIVE NEGATIVE Urine nitrite detection by test strip NEGATIVE NEGATIVE Urine total bilirubin detection by test strip NEGATIVE NEGATIVE Urine urobilinogen measurement by automated test strip (mass/volume) NORMAL NORMAL Urine leukocyte esterase detection by dipstick 1+ NEGATIVE Automated urine sediment erythrocyte count by microscopy (number/high power field) NONE NRG Automated urine sediment leukocyte count by microscopy (number/high power field ) RARE NRG Bacteria detection in urine sediment by light microscopy TRACE NRG Squamous epithelial cells detection in urine sediment by light microscopy 2-5 NRG Crystals detection in urine sediment by light microscopy NONE NRG Casts detection in urine sediment by light microscopy NONE NRG Mucus detection in urine sediment by light microscopy SMALL NRG Complete urinalysis with reflex to culture NO NRG Complete blood count (CBC) with automated white blood cell (WBC) differential - 03/25/17 02:10 Blood leukocytes automated count (number/volume) 10.1 10*3/ uL 4.3-11.0 Blood erythrocytes automated count (number/volume) 4.04 10*6 /uL 4.35-5.85 Venous blood hemoglobin measurement (mass/volume) 12.0 g/dL 11.5-16.0 Blood hematocrit (volume fraction) 36 % 35-52 Automated erythrocyte mean corpuscular volume 90 [foz_us] 80-99 Automated erythrocyte mean corpuscular hemoglobin (mass per erythrocyte) 30 pg 25-34 Automated erythrocyte mean corpuscular hemoglobin concentration measurement ( mass/volume) 33 g/dL 32-36 Automated erythrocyte distribution width ratio 12.8 % 10.0-14.5 Automated blood platelet count (count/volume) 280 10*3/uL 130-400 Automated blood platelet mean volume measurement 9.3 [foz_us ] 7.4-10.4 Automated blood neutrophils/100 leukocytes 40 % 42-75 Automated blood lymphocytes/100 leukocytes 48 % 12-44 Blood monocytes/100 leukocytes 7 % 0-12 Automated blood eosinophils/100 leukocytes 5 % 0-10 Automated blood basophils/100 leukocytes 1 % 0-10 Blood neutrophils automated count (number/volume) 4.1 10*3 1.8-7.8 Blood lymphocytes automated count (number/volume) 4.8 10*3 1.0-4.0 Blood monocytes automated count (number/volume) 0.7 10*3 0.0-1.0 Automated eosinophil count 0.5 10*3/uL 0.0-0.3 Automated blood basophil count (count/volume) 0.1 10*3/uL 0.0-0.1 Comprehensive metabolic panel - 03/25/17 02:10 Serum or plasma sodium measurement (moles/volume) 141 mmol/ L 135-145 Serum or plasma potassium measurement (moles/volume) 3.5 mmol/L 3.6-5.0 Serum or plasma chloride measurement (moles/volume) 108 mmol /L 98-107 Carbon dioxide 22 mmol/L 21-32 Serum or plasma anion gap determination (moles/volume) 11 mmol/L 5-14 Serum or plasma urea nitrogen measurement (mass/volume) 13 mg/dL 7-18 Serum or plasma creatinine measurement (mass/volume) 0.82 mg /dL 0.60-1.30 Serum or plasma urea nitrogen/creatinine mass ratio 16 NRG Serum or plasma creatinine measurement with calculation of estimated glomerular filtration rate > NRG Serum or plasma glucose measurement (mass/volume) 110 mg/dL 70-105 Serum or plasma calcium measurement (mass/volume) 9.2 mg/dL 8.5-10.1 Serum or plasma total bilirubin measurement (mass/volume) 0.4 mg/dL 0.1-1.0 Serum or plasma alkaline phosphatase measurement (enzymatic activity/volume) 67 U/L 40-136 Serum or plasma aspartate aminotransferase measurement (enzymatic activity/ volume) 15 U/L 5-34 Serum or plasma alanine aminotransferase measurement (enzymatic activity/volume ) 13 U/L 0-55 Serum or plasma protein measurement (mass/volume) 7.0 g/dL 6.4-8.2 Serum or plasma albumin measurement (mass/volume) 4.1 g/dL 3.2-4.5 Magnesium - 03/25/17 02:10 Magnesium 2.4 mg/dL 1.8-2.4 Serum or plasma C reactive protein measurement (mass/volume) - 03/25/17 02:10 Serum or plasma C reactive protein measurement (mass/volume) 0.08 mg/dL 0.00-0.50 Encounters ACCT No. Visit Date/Time Discharge Status Pt. Type Provider Facility Loc./Unit Complaint [id number] 12/31/2013 17:13:25 12/31/2013 23: 59:59 CLS Outpatient Ryan Voss [id number] 12/30/2013 15:07:07 12/30/2013 23: 59:59 CLS Outpatient Ryan Voss [id number] 12/19/2013 10:43:46 12/19/2013 23: 59:59 CLS Outpatient Olga Lomeli [id number] 11/18/2013 19:34:08 11/18/2013 23: 59:59 CLS Outpatient Beth Lockett
== END | disposition home or self-care (01) ==
LOC: EDUNIT# 01:24 → ER 01:28
DX: E86.0 Dehydration (principal); R55 Syncope and collapse; F41.9 Anxiety disorder, unspecified; F31.9 Bipolar disorder, unspecified; F60.9 Personality disorder, unspecified; F17.210 Nicotine dependence, cigarettes, uncomplicated; Z86.19 Personal history of other infectious and parasitic diseases; Z90.89 Acquired absence of other organs
CPT/HCPCS: 36415; 80053; 81000; 83735; 84703; 85025; 86141; 96360

== ENCOUNTER 2017-04-28 18:24 | Emergency (ER) | payer BC ==
[~2017-04-28] VITALS: Ht 160 cm; Wt 65.8 kg
[~2017-04-28 18:24] MED LIST changes: -NS IV 500 ML 500 ML IV ONE
[2017-04-28] MEDS ORDERED: cefTRIAXone 1 GM (ROCEPHIN) VIAL IV STA (18:40)
[2017-04-28] MEDS ORDERED: KETOROLAC 30 MG/ML VIAL IVP STA (18:40)
[2017-04-28] MEDS ORDERED: NS IV 1000 ML 1,000 ML IV ONE (18:40)
--- NOTE | 2017-04-28 18:40 | ED Fever ---
History of Present Illness General Stated Complaint: FEVER Source: patient, other Exam Limitations: no limitations History of Present Illness Time seen by provider: 18:34 Initial Comments Patient presents to ER by private conveyance with chief complaint of 5 days of fever Tmax 104.0 Fahrenheit. She's complained of a chronic dry nonproductive cough as well as pain up under her right rib and her right flank. She says she has no painful urination, nausea, vomiting, rash, tick bites, shortness of breath, chest pain, low back pain. She denies discharge or dysuria, weakness or fainting. Patient states her last LMP was at the beginning of March and she thought that she was starting her period this week but just passed a single clot. She has not any kind of control and is sexually active. She smokes half pack a day and does not drink and denies any use of drugs. She works at [employer] and went to work today but around noon when she started really feeling terrible and felt like she couldn't treat her fever with just Tylenol anymore. Historically she's had her gallbladder and appendix removed surgically. Allergies and Home Medications Allergies Coded Allergies: Penicillins (Verified Allergy, Unknown, 07/14/15) Home Medications No Active Prescriptions or Reported Meds Constitutional: see HPI, chills, diaphoresis, No dizziness, fever, malaise, No weakness, No weight loss EENTM: No blurred vision, No double vision Respiratory: see HPI, cough (nonproductive), No phlegm, No short of breath, No wheezing Cardiovascular: No chest pain, No palpitations, No syncope Gastrointestinal: RUQ, abdominal pain, No constipation, No diarrhea, No heartburn, loss of appetite, No melena, No nausea Genitourinary: No discharge, No dysuria LMP: Mar 18, 2017 Musculoskeletal: No back pain, No joint pain Skin: No pruritus, No rash Psychiatric/Neurological: Headache, Denies Numbness, Denies Paresthesia Hematologic/Lymphatic: Blood Clots, Denies Easy Bleeding Past Eipqhva-Qkxlhx-Qbzyig Hx Patient Social History Type Used: Cigarettes 2nd Hand Smoke Exposure: Yes Recent Foreign Travel: No Contact w/Someone Who Travel: No Recent Hopitalizations: No Immunizations Up To Date Tetanus Booster (TDap): More than 5yrs PED Vaccines UTD: No Date of Influenza Vaccine: Jul 17, 2015 Seasonal Allergies Seasonal Allergies: No Surgeries HX Surgeries: Yes Surgeries: Adenoidectomy, Appendectomy Respiratory Hx Respiratory Disorders: No Cardiovascular Hx Cardiac Disorders: Yes (LOW HEART RATE) Neurological Hx Neurological Disorders: No Reproductive System Hx Reproductive Disorders: No Sexually 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[place], Gonnorhea) HIV/AIDS: No Female Reproductive Disorders: Denies Genitourinary Hx Genitourinary Disorders: No Gastrointestinal Hx Gastrointestinal Disorders: No Gastrointestinal Disorders: Irritable Bowel Musculoskeletal Hx Musculoskeletal Disorders: No Endocrine Hx Endocrine Disorders: No HEENT HX ENT Disorders: No Cancer Hx Cancer: No Psychosocial Hx Psychiatric Problems: Yes (Borderline personality disorder, methamphetamine abuse) Behavioral Health Disorders: Anxiety, Personality Disorder, Depression Integumentary HX Skin/Integumentary Disorder: No Blood Transfusions Hx Blood Disorders: No Adverse Reaction to a Blood Tr: No Family Medical History Significant Family History: No Pertinent Family Hx Family Medial History: Hypertension 19 FATHER Seizure disorder G8 BROTHER Thyroid disease G8 SISTER Physical Exam Vital Signs Vital Sign - Last 12Hours 04/28/17 18:30 Temp 102.8 Pulse 110 Resp 20 B/P (MAP) 128/78 Pulse Ox 99 O2 Delivery Room Air Capillary Refill : General Appearance: WD/WN, mild distress Eyes: Bilateral Eye EOMI, Bilateral Eye Normal Inspection, Bilateral Eye PERRL HEENT: PERRL/EOMI, normal ENT inspection, TMs normal, pharynx normal Neck: non-tender, full range of motion, supple, normal inspection Respiratory: lungs clear, normal breath sounds, no respiratory distress Cardiovascular: normal peripheral pulses, regular rate, rhythm, no edema, no murmur Gastrointestinal: normal bowel sounds, soft, no organomegaly, No distended, guarding, No rebound, tenderness (right upper quadrant and epigastrium), other ( bilateral costovertebral angle tenderness to percussion right worse than left) Extremities: non-tender, normal inspection, no calf tenderness, normal capillary refill Neurologic/Psychiatric: alert, oriented x 3 Skin: normal color, warm/dry Lymphatic: no adenopathy Focused Exam Time of Focused Exam: 18:51 Respiratory: Chest Non Tender, Lungs Clear, Normal Breath Sounds, No Accessory Muscle Use Cardiovascular: Regular Rate, Rhythm, No Edema, Normal Peripheral Pulses Capillary Refill: Less Than 3 Seconds Peripheral Pulses: 2+ Dorsalis Pedis (R), 2+ Left Dors-Pedis (L), 3+ Radial Pulses (R), 3+ Radial Pulses (L) Skin: normal color, warm/dry Lactic Acid Level Laboratory Tests Test 04/28/17 18:46 Lactic Acid Level 1.80 MMOL/L (0.50-2.00) Progress/Results/Core Measures Results/Orders Lab Results Laboratory Tests Test 04/28/17 18:40 04/28/17 18:42 04/28/17 18:46 Range/Units Urine Color YELLOW Urine Clarity CLEAR Urine pH 5 5-9 Urine Specific [place] 1.020 1.016-1.022 Urine Protein 1+ H NEGATIVE Urine Glucose (UA) NEGATIVE NEGATIVE Urine Ketones 1+ H NEGATIVE Urine Nitrite NEGATIVE NEGATIVE Urine Bilirubin NEGATIVE NEGATIVE Urine Urobilinogen 1 NORMAL MG/DL Urine Leukocyte Esterase 1+ H NEGATIVE Urine RBC (Auto) 2+ H NEGATIVE Urine RBC RARE /HPF Urine WBC 0-2 /HPF Urine Squamous Epithelial Cells 2-5 /HPF Urine Crystals PRESENT H /LPF Urine Calcium Oxalate Crystals FEW H /LPF Urine Bacteria TRACE /HPF Urine Casts NONE /LPF Urine Mucus MODERATE H /LPF Urine Culture Indicated NO Urine Opiates Screen NEGATIVE NEGATIVE Urine Oxycodone Screen NEGATIVE NEGATIVE Urine Methadone Screen NEGATIVE NEGATIVE Urine Propoxyphene Screen NEGATIVE NEGATIVE Urine Barbiturates Screen NEGATIVE NEGATIVE Ur Tricyclic Antidepressants Screen NEGATIVE NEGATIVE Urine Phencyclidine Screen NEGATIVE NEGATIVE Urine Amphetamines Screen NEGATIVE NEGATIVE Urine Methamphetamines Screen NEGATIVE NEGATIVE Urine Benzodiazepines Screen NEGATIVE NEGATIVE Urine Cocaine Screen NEGATIVE NEGATIVE Urine Cannabinoids Screen POSITIVE H NEGATIVE White Blood Count 8.7 4.3-11.0 10^3/uL Red Blood Count 4.13 L 4.35-5.85 10^6/uL Hemoglobin 12.2 11.5-16.0 G/DL Hematocrit 37 35-52 % Mean Corpuscular Volume 89 80-99 FL Mean Corpuscular Hemoglobin 30 25-34 PG Mean Corpuscular Hemoglobin Concent 33 32-36 G/DL Red Cell Distribution Width 12.3 10.0-14.5 % Platelet Count 215 130-400 10^3/uL Mean Platelet Volume 9.3 7.4-10.4 FL Neutrophils (%) (Auto) 84 H 42-75 % Lymphocytes (%) (Auto) 10 L 12-44 % Monocytes (%) (Auto) 7 0-12 % Eosinophils (%) (Auto) 0 0-10 % Basophils (%) (Auto) 0 0-10 % Neutrophils # (Auto) 7.3 1.8-7.8 X 10^3 Lymphocytes # (Auto) 0.8 L 1.0-4.0 X 10^3 Monocytes # (Auto) 0.6 0.0-1.0 X 10^3 Eosinophils # (Auto) 0.0 0.0-0.3 10^3/uL Basophils # (Auto) 0.0 0.0-0.1 10^3/uL Prothrombin Time 12.5 12.2-14.7 SEC INR Comment 1.0 0.8-1.4 Activated Partial Thromboplast Time 32 24-35 SEC Sodium Level 138 135-145 MMOL/L Potassium Level 3.2 L 3.6-5.0 MMOL/L Chloride Level 105 98-107 MMOL/L Carbon Dioxide Level 22 21-32 MMOL/L Anion Gap 11 5-14 MMOL/L Blood Urea Nitrogen 8 7-18 MG/DL Creatinine 0.78 0.60-1.30 MG/DL Estimat Glomerular Filtration Rate > 60 BUN/Creatinine Ratio 10 Glucose Level 114 H 70-105 MG/DL Calcium Level 9.0 8.5-10.1 MG/DL Magnesium Level 1.7 L 1.8-2.4 MG/DL Total Bilirubin 0.3 0.1-1.0 MG/DL Aspartate Amino Transf (AST/SGOT) 33 5-34 U/L Alanine Aminotransferase (ALT/SGPT) 31 0-55 U/L Alkaline Phosphatase 74 40-136 U/L Total Protein 7.1 6.4-8.2 GM/DL Albumin 3.9 3.2-4.5 GM/DL Lipase 47 8-78 U/L Lactic Acid Level 1.80 0.50-2.00 MMOL/L My Orders Orders - GINGER LEACH Cbc With Automated Diff (04/28/17 18:40) Comprehensive Metabolic Panel (04/28/17 18:40) Drug Screen Stat (Urine) (04/28/17 18:40) Lipase (04/28/17 18:40) Magnesium (04/28/17 18:40) Ua Culture If Indicated (04/28/17 18:40) Lactic Acid Analyzer (04/28/17 18:40) Blood Culture (04/28/17 18:40) Sputum Culture (04/28/17 18:40) Protime With Inr (04/28/17 18:40) Partial Thromboplastin Time (04/28/17 18:40) O2 (04/28/17 18:40) Saline Lock/Iv-Start (04/28/17 18:40) Saline Lock/Iv-Start (04/28/17 18:40) Vital Signs Adult Sepsis Patie Q1HR (04/28/17 18:40) Ceftriaxone Injection (Rocephin Injectio (04/28/17 18:40) Remove Rings In Anticipation O (04/28/17 18:40) Ns Iv 1000 Ml (Sodium Chloride 0.9%) (04/28/17 18:40) Ketorolac Injection (Toradol Injection) (04/28/17 18:40) Chest Pa/Lat (2 View) (04/28/17 18:40) Urine Bedside (04/28/17 18:40) Ct Abd/Pelvis Wo(Kidney Stone) (04/28/17 19:09) Ns (Ivpb) (Sodium Chloride 0.9% Ivpb Bag (04/28/17 19:09) Potassium Chloride (Tablet) (K Dur Table (04/28/17 19:45) Magnesium Oxide Tablet (Mag Ox Tablet) (04/28/17 19:45) Medications Given in ED Current Medications Medications Dose Ordered Sig/Eloy Route Start Time Stop Time Status Last Admin Dose Admin Sodium Chloride 50 ml @ ud STK-MED ONCE .ROUTE 04/28/17 19:09 04/28/17 19:16 DC 04/28/17 19:17 50 MLS/HR Sodium Chloride 1,000 ml @ 0 mls/hr Q0M ONCE IV 04/28/17 18:40 04/28/17 18:45 DC 04/28/17 18:50 0 MLS/HR Vital Signs/I&O Vital Sign - Last 12Hours 04/28/17 18:30 Temp 102.8 Pulse 110 Resp 20 B/P (MAP) 128/78 Pulse Ox 99 O2 Delivery Room Air Progress Note #1: Time: 18:51 Progress Note Patient presents with 5 days of very high fever and is clearly looking septic on vital signs and clinical exam however the costovertebral tenderness and right upper quadrant pain will not be related to appendix or gallbladder. She says she is due for her period and time and passing clots so there might be some concern of or tubal that her pain is not in her pelvis. We'll check lipase get some fluids on board and start antibiotics that would cover for potential pneumonia given her dry cough and history of smoking or a urinary origin if she is passing a stone. Based on her lab results will decide whether or not to get a CT abdomen pelvis versus ultrasound. Patient states her allergy to penicillin results in hives. Progress Note #2: Time: 19:13 Progress Note No overt UTI evidence on the UA however there are red blood cells with her costovertebral tenderness we'll going get a CAT scan of her abdomen looking for potential kidney stones. Lactate is normal. Progress Note #3: Time: 19:51 Progress Note UA does demonstrate some calcium oxalate crystals. She says his fevers and going on for 5 days. Perhaps she has already passed the stone? Nitrites are negative. CT scan was otherwise unremarkable. Lipase was negative. Modest retroperitoneal lymphadenopathy seen from [address] scan does not seem to be an explanation for her symptoms. Diagnostic Imaging Diagonstic Imaging: Xray Plain Films/CT/US/NM/MRI: chest Comments NAME: ZORAN SOFIA MED REC#: [id number] PT STATUS: REG ER : 1990 PHYSICIAN: GINGER LEACH MD ADMIT DATE: 04/28/17/ER Draft Date of Exam:04/28/17 CHEST PA/LAT (2 VIEW) INDICATION: Fever and cough. COMPARISON: 01/17/2017 FINDINGS: Frontal and lateral views of the chest demonstrate normal heart size and pulmonary vascularity. The lungs are clear. There are no signs of infiltrate, pleural effusions or pneumothoraces. The visualized osseous structures show no acute abnormalities. IMPRESSION: 1. No acute process. No signs of infiltrates, effusions or pneumothoraces. Dictated on workstation # [id number] Dict: 04/28/171906 Trans: 04/28/171907 PATTI [id number] Interpreted by: ERNESTO LOPEZ Electronically signed by: Reviewed: Reviewed by Me Diagonstic Imaging: CT Plain Films/CT/US/NM/MRI: abdomen (w/o), pelvis Comments Surgically absent appendix and gallbladder. There appears to be modestly prominent retroperitoneal lymph nodes of uncertain significance. [facility]. [place], [place] NAME: ZORAN SOFIA [facility] REC#: [id number] PT STATUS: REG ER : 1990 PHYSICIAN: GINGER LEACH MD ADMIT DATE: 04/28/17/ER Draft Date of Exam:04/28/17 CT ABD/PELVIS WO(KIDNEY STONE) PROCEDURE: CT urinary tract, rule out kidney stone. TECHNIQUE: Multiple contiguous axial images were obtained through the abdomen and pelvis without the use of intravenous contrast. INDICATION: Right flank pain. COMPARISON: 07/18/2015. FINDINGS: Included views of the lung bases are clear. CT ABDOMEN: No renal or ureteral calculi are seen on either side. Additionally, there is no hydronephrosis or other evidence of obstruction. No renal mass type lesions are seen on this noncontrast exam. The adrenal glands, spleen, pancreas and liver have an unremarkable noncontrast CT appearance. Small bowel loops are nondistended. Normal appendix cannot be adequately identified, but the appendix does appear to be surgically absent. There is no loculated fluid collection, free fluid or free air within the abdomen. Multiple prominent appearing, yet subcentimeter, mesenteric and retroperitoneal lymph nodes are identified. Portacaval lymph node is identified on the right just inferior to the right renal hilum. It measures approximately 9 mm in shortest axis dimension. Note is made of similar appearance on prior exam dated 07/18/2015. CT PELVIS: Urinary bladder is unopacified. No calculi are seen within the urinary bladder. There is no loculated fluid collection, free fluid or free air within the pelvis. Bony structures show no acute abnormality. IMPRESSION: 1. No acute abnormality within the abdomen or pelvis on this noncontrast exam. 2. Multiple prominent appearing, yet subcentimeter mesenteric and retroperitoneal lymph nodes. Exact etiology and clinical significance is indeterminate. Note is made of similar appearance on prior exam dated 07/18/2015. Dictated on workstation # [id number] Dict: 04/28/171931 Trans: 04/28/171941 [facility] [id number] Interpreted by: ERNESTO LOPEZ Electronically signed by: Reviewed: Reviewed by Me Departure Impression Impression: Primary Impression: Fever Qualified Codes: R50.9 - Fever, unspecified Additional Impression: Right upper quadrant abdominal pain of unknown etiology Disposition: 01 HOME, SELF-CARE Condition: Stable Departure-Patient Inst. Decision time for Depature: 20:03 Referrals: NO,LOCAL PHYSICIAN (PCP/Family) Primary Care Physician Patient Instructions: Fever, Adult (DC) Add. Discharge Instructions: Please finish the antibiotics 1 tablet twice a day by mouth. Please take it with probiotics twice a day or you can use yogurt with active culture such as [place] yogurt twice a day to try and prevent the loose stools caused by all antibiotics. Monday morning you should follow up with a primary care physician. [facility] is taking new clients at [phone]. Plan to follow up in 1-2 weeks if your pain persists. Plan on returning to the ER immediately if you have new or worsening symptoms such as intractable nausea or vomiting continued fevers or worsening outcome. Scripts Cephalexin (Cephalexin) 500 Mg Tablet 500 MG PO BID for 7 Days, #14 TAB 0 Refills Prov: GINGER LEACH 04/28/17 Work/School Note: Work Release Form Date Seen in the Emergency Department: Apr 28, 2017 Return to Work: Apr 30, 2017 Restrictions: No Restrictions Copy Copies To 1: ERIC BRENNER TITUS J Apr 28, 2017 18:40
[2017-04-28 18:51] LABS: BASOPHILS % (AUTO) 0 % (0-10); EOSINOPHILS % (AUTO) 0 % (0-10); LYMPHOCYTES # (AUTO) 0.8 X 10^3 (1.0-4.0); LYMPHOCYTES % (AUTO) 10 % (12-44); MEAN CORPUSCULAR HEMOGLOBIN 30 PG (25-34); MEAN CORPUSCULAR HGB CONC 33 G/DL (32-36); MEAN CORPUSCULAR VOLUME 89 FL (80-99); MEAN PLATELET VOLUME 9.3 FL (7.4-10.4); MONOCYTES # (AUTO) 0.6 X 10^3 (0.0-1.0); MONOCYTES % (AUTO) 7 % (0-12); NEUTROPHILS # (AUTO) 7.3 X 10^3 (1.8-7.8); NEUTROPHILS % (AUTO) 84 % (42-75); PLATELET COUNT 215 10^3/uL (130-400); RED BLOOD COUNT 4.13 10^6/uL (4.35-5.85); RED CELL DISTRIBUTION WIDTH 12.3 % (10.0-14.5); WHITE BLOOD COUNT 8.7 10^3/uL (4.3-11.0)
[2017-04-28 18:51] LABS: BILIRUBIN,URINE NEGATIVE (NEGATIVE); KETONES,URINE 1+ (NEGATIVE); LEUKOCYTE ESTERASE ,URINE 1+ (NEGATIVE); NITRITE,URINE NEGATIVE (NEGATIVE); PH,URINE 5 (5-9); PROTEIN,URINE 1+ (NEGATIVE); UROBILINOGEN,URINE 1 MG/DL (NORMAL)
[2017-04-28 19:04] LABS: PROTHROMBIN TIME PATIENT 12.5 SEC (12.2-14.7)
[2017-04-28 19:05] LABS: CALCIUM OXALATE CRYSTALS,UR FEW /LPF; WBC,URINE 0-2 /HPF
[2017-04-28] MEDS ORDERED: NS (IVPB) 50 ML ONE (19:09)
--- NOTE | 2017-04-28 19:09 | Diagnostic Imaging Report ---
INDICATION: Fever and cough. COMPARISON: 01/17/2017 FINDINGS: Frontal and lateral views of the chest demonstrate normal heart size and pulmonary vascularity. The lungs are clear. There are no signs of infiltrate, pleural effusions or pneumothoraces. The visualized osseous structures show no acute abnormalities. IMPRESSION: 1. No acute process. No signs of infiltrates, effusions or pneumothoraces. Dictated by: Dictated on workstation # [id number]
[2017-04-28 19:16] LABS: ALANINE AMINOTRANSFERASE 31 U/L (0-55); ALBUMIN 3.9 GM/DL (3.2-4.5); ANION GAP 11 MMOL/L (5-14); ASPARTATE AMINO TRANSFERASE 33 U/L (5-34); BILIRUBIN,TOTAL 0.3 MG/DL (0.1-1.0); BLOOD UREA NITROGEN 8 MG/DL (7-18); BUN/CREATININE RATIO 10; CARBON DIOXIDE 22 MMOL/L (21-32); CHLORIDE 105 MMOL/L (98-107); CREATININE SERUM 0.78 MG/DL (0.60-1.30); GFR ESTIMATED > 60; GLUCOSE 114 MG/DL (70-105); LIPASE 47 U/L (8-78); MAGNESIUM 1.7 MG/DL (1.8-2.4); POTASSIUM 3.2 MMOL/L (3.6-5.0); SODIUM 138 MMOL/L (135-145); TOTAL PROTEIN 7.1 GM/DL (6.4-8.2)
--- NOTE | 2017-04-28 19:42 | Diagnostic Imaging Report ---
PROCEDURE: CT urinary tract, rule out kidney stone. TECHNIQUE: Multiple contiguous axial images were obtained through the abdomen and pelvis without the use of intravenous contrast. INDICATION: Right flank pain. COMPARISON: 07/18/2015. FINDINGS: Included views of the lung bases are clear. CT ABDOMEN: No renal or ureteral calculi are seen on either side. Additionally, there is no hydronephrosis or other evidence of obstruction. No renal mass type lesions are seen on this noncontrast exam. The adrenal glands, spleen, pancreas and liver have an unremarkable noncontrast CT appearance. Small bowel loops are nondistended. Normal appendix cannot be adequately identified, but the appendix does appear to be surgically absent. There is no loculated fluid collection, free fluid or free air within the abdomen. Multiple prominent appearing, yet subcentimeter, mesenteric and retroperitoneal lymph nodes are identified. Portacaval lymph node is identified on the right just inferior to the right renal hilum. It measures approximately 9 mm in shortest axis dimension. Note is made of similar appearance on prior exam dated 07/18/2015. CT PELVIS: Urinary bladder is unopacified. No calculi are seen within the urinary bladder. There is no loculated fluid collection, free fluid or free air within the pelvis. Bony structures show no acute abnormality. IMPRESSION: 1. No acute abnormality within the abdomen or pelvis on this noncontrast exam. 2. Multiple prominent appearing, yet subcentimeter mesenteric and retroperitoneal lymph nodes. Exact etiology and clinical significance is indeterminate. Note is made of similar appearance on prior exam dated 07/18/2015. Dictated by: Dictated on workstation # [id number]
[2017-04-28] MEDS ORDERED: MAGNESIUM OXIDE (MAG-OX)400 MG TAB PO ONE (19:45)
[2017-04-28] MEDS: KCL 20 MEQ TAB (K-DUR) PO ONE ×2 (19:58→20:04)
[2017-04-28] MEDS ORDERED: CEPH500T PO (20:08)
[2017-04-28 20:13] VITALS: BP 109/65
[2017-04-29] MEDS ORDERED: NAPR500T PO (00:44)
== END 2017-04-28 20:13 | disposition home or self-care (01) ==
LOC: EDUNIT# 18:24 → ER 18:25
DX: R50.9 Fever, unspecified (principal); R10.11 Right upper quadrant pain; F41.9 Anxiety disorder, unspecified; F32.9 Major depressive disorder, single episode, unspecified; Z77.22 Contact with and (suspected) exposure to environmental tobacco smoke (acute) (chronic); Z90.49 Acquired absence of other specified parts of digestive tract
CPT/HCPCS: 36415; 71020; 74176; 80053; 80306; 81000; 83605; 83690; 83735; 84703; 85025; 85610; 85730; 87040

== ENCOUNTER 2017-04-28 23:16 | Emergency (ER) | payer BC ==
[~2017-04-28] VITALS: Ht 162.6 cm; Wt 68.0 kg
[~2017-04-28 23:16] MED LIST changes: +CEPH500T PO
[2017-04-28] MEDS ORDERED: fentaNYL INJECTION 100 MCG/2 ML AMP IM ONE (23:30)
--- NOTE | 2017-04-28 23:30 | ED General ---
General Chief Complaint: General Problems/Pain Stated Complaint: PAIN ON BOTH SIDES Source of Information: Patient, Other Exam Limitations: No Limitations History of Present Illness Time Seen by Provider: 23:25 Initial Comments Patient has return to the ER by private conveyance with a friend with chief complaint of worsening pain up under her ribs deep inspiration since she was seen just a few hours earlier in the ER. She says she is not short of breath nor she having any abdominal pain, diarrhea, nausea. She says that the pain is worse on taking a deep breath and is significant 10 out of 10 now. She denies oral contraceptives, being incapacitated or laid up in bed, recent surgery, recent long trips or history of DVTs or clots. Allergies and Home Medications Allergies Coded Allergies: Penicillins (Verified Allergy, Unknown, 07/14/15) Home Medications Cephalexin 500 Mg Tablet, 500 MG PO BID for 7 Days, #14 Ref 0 Prescribed by: GINGER LEACH on 04/28/172007 Constitutional: see HPI, No chills, No diaphoresis, fever, No malaise EENTM: No ear pain, No eye pain, No hoarseness Respiratory: No cough, No short of breath Cardiovascular: see HPI, chest pain, No palpitations, No syncope, No vascular heart diseas Gastrointestinal: abdominal pain (right and left upper quadrant), No constipation, No diarrhea, No dysphagia, No nausea Genitourinary: No discharge, No dysuria : No Musculoskeletal: No back pain, No joint pain Skin: No pruritus, No rash Psychiatric/Neurological: Denies Headache, Denies Numbness Past Dlvdxop-Qhmiwo-Meqdfp Hx Patient Social History Alcohol Use: Occasionally Uses Recreational Drug Use: Yes (SNORTS METHAMPHETAMINES) Smoking Status: Current Everyday Smoker Type Used: Cigarettes 2nd Hand Smoke Exposure: Yes Recent Foreign Travel: No Contact w/Someone Who Travel: No Recent Hopitalizations: No Immunizations Up To Date Tetanus Booster (TDap): More than 5yrs PED Vaccines UTD: No Date of Influenza Vaccine: Jul 17, 2015 Seasonal Allergies Seasonal Allergies: No Surgeries HX Surgeries: Yes Surgeries: Adenoidectomy, Appendectomy, Gallbladder Respiratory Hx Respiratory Disorders: No Cardiovascular Hx Cardiac Disorders: Yes (LOW HEART RATE) Neurological Hx Neurological Disorders: No Reproductive System Hx Reproductive Disorders: No Sexually 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Tricamonas, Gonnorhea) HIV/AIDS: No Female Reproductive Disorders: Denies Genitourinary Hx Genitourinary Disorders: No Gastrointestinal Hx Gastrointestinal Disorders: No Gastrointestinal Disorders: Irritable Bowel Musculoskeletal Hx Musculoskeletal Disorders: No Endocrine Hx Endocrine Disorders: No HEENT HX ENT Disorders: No Cancer Hx Cancer: No Psychosocial Hx Psychiatric Problems: Yes (Borderline personality disorder, methamphetamine abuse) Behavioral Health Disorders: Anxiety, Personality Disorder, Depression Integumentary HX Skin/Integumentary Disorder: No Blood Transfusions Hx Blood Disorders: No Adverse Reaction to a Blood Tr: No Family Medical History Significant Family History: No Pertinent Family Hx Family Medial History: Hypertension 19 FATHER Seizure disorder G8 BROTHER Thyroid disease G8 SISTER Physical Exam Vital Signs Vital Sign - Last 12Hours 04/28/17 23:23 Temp 100.8 Pulse 146 Resp 24 B/P (MAP) 133/82 Pulse Ox 99 O2 Delivery Room Air Capillary Refill : General Appearance: WD/WN, Anxious (tearful), Moderate Distress Eyes: Bilateral Eye EOMI, Bilateral Eye Normal Inspection, Bilateral Eye PERRL HEENT: PERRL/EOMI, TMs Normal, Normal ENT Inspection Neck: Normal Inspection, Non Tender Respiratory: Lungs Clear, Normal Breath Sounds, No Accessory Muscle Use, No Respiratory Distress, Other (bilateral lower ribs very tender to light palpation ) Cardiovascular: Regular Rate, Rhythm, No Edema, Normal Peripheral Pulses Gastrointestinal: Non Tender, Soft Back: CVA Tenderness (L), CVA Tenderness (R) Extremity: Normal Capillary Refill, Normal Inspection, Normal Range of Motion, Non Tender, No Calf Tenderness Neurologic/Psychiatric: Alert, Oriented x3, No Motor/Sensory Deficits, 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 Norm as Tested Skin: Normal Color, Warm/Dry Lymphatic: No Adenopathy Progress/Results/Core Measures Results/Orders Lab Results Laboratory Tests Test 04/28/17 18:42 Range/Units D-Dimer 1.73 H 0.00-0.49 UG/ML My Orders Orders - GINGER LEACH Fentanyl Injection (Sublimaze Injection (04/28/17 23:30) Fibrin Degradation Products (04/28/17 23:30) Ekg Tracing (04/28/17 23:37) Saline Lock/Iv-Start (04/28/17 23:50) Ns Iv 1000 Ml (Sodium Chloride 0.9%) (04/28/17 23:50) Ct Angio Chest W (04/29/17 00:03) Medications Given in ED Current Medications Medications Dose Ordered Sig/Eloy Route Start Time Stop Time Status Last Admin Dose Admin Fentanyl Citrate 50 mcg ONCE ONCE IM 04/28/17 23:30 04/28/17 23:32 DC 04/28/17 23:35 50 MCG Sodium Chloride 1,000 ml @ 0 mls/hr Q0M ONCE IV 04/28/17 23:50 04/28/17 23:51 DC 04/29/17 00:22 1,000 MLS/HR Vital Signs/I&O Vital Sign - Last 12Hours 04/28/17 23:23 Temp 100.8 Pulse 146 Resp 24 B/P (MAP) 133/82 Pulse Ox 99 O2 Delivery Room Air Progress Note : Time: 00:07 Progress Note Patient presents to ER with similar but worsening symptoms that are now more pleuritic in nature. Differential at this point would be between a pulmonary embolism, Wells PE score is 1.5-4.5 depending on how wide differential is. The EKG is unremarkable and a cardiac origin is thought to be unlikely. No evidence of pericarditis on the EKG. Ran a d-dimer on the blood collected earlier and it was positive so we'll go ahead and set her up for a CT angiogram of the chest. If it's negative then the next likely chill candidate would be pleurisy from either viral or inhalation of foreign body given her admitted history of snorting methamphetamines. Her pain is under much better control now after some opiates. ECG Initial ECG Impression Date: Apr 28, 2017 Initial ECG Impression Time: 23:51 Initial ECG Rate: 106 Initial ECG Rhythm: S.Tach Initial ECG Intervals: NV (224) Initial ECG Impression: Nonspecific Changes Initial ECG Comparisson: No Previous ECG Available Comment Nonspecific changes without any evidence of T-wave abnormalities. Diagnostic Imaging Diagonstic Imaging: CT Plain Films/CT/US/NM/MRI: chest (angio) Comments No evidence of pulmonary embolism. No other acute cardiopulmonary disease. Patient is status post cholecystectomy. Reviewed: Reviewed [place] Hawk Study, Reviewed by Me Departure Impression Impression: Primary Impression: Pleurisy Disposition: 01 HOME, SELF-CARE Condition: Improved Departure-Patient Inst. Decision time for Depature: 00:41 Referrals: NO,LOCAL PHYSICIAN (PCP/Family) Primary Care Physician Patient Instructions: Pleuritic Chest Pain (DC) Add. Discharge Instructions: Your pleuritic chest pain is probably caused by a virus or some other injury to the linings of your long in the cavity with it which it rests. This is causing you to have pain on deep inspiration. I still want to take deep inspirations and use the incentive spirometer as described 6-10 breaths per hour while awake. For your pain you should use a pillow to splint yourself as needed, a heating pad and the Naprosyn twice a day until your pain resolves. You can also use Tylenol 1000 mg every 8 hours for breakthrough pain. I highly encourage to follow-up with a primary care physician for further management area I would expect this should be getting better over the next 5-7 days. You may continue to have symptoms for a week or 2 afterwards. All discharge instructions reviewed with patient and/or family. Voiced understanding. Scripts Naproxen (Naprosyn) 500 Mg Tablet 500 MG PO BID Y for PAIN-MODERATE TO SEVERE for 14 Days, #30 TAB 0 Refills Prov: GINGER LEACH 04/29/17 Copy Copies To 1: ERIC BRENNER DO GINGER LEACH Apr 28, 2017 23:30
[2017-04-28] MEDS ORDERED: NS IV 1000 ML 1,000 ML IV ONE (23:50)
[2017-04-29] MEDS ORDERED: NAPR500T PO (00:44)
[2017-04-29] MEDS ORDERED: ONDANSETRON 4 MG/2 ML (SDV) Z0FRAN ONE (00:54)
[2017-04-29] MEDS ORDERED: RX-NAPROXEN (NAPROSYN) 250 MG TAB PPK#4 PO STA (00:57)
[2017-04-29] MEDS ORDERED: ONDANSETRON 4 MG/2 ML (SDV) Z0FRAN IVP ONE (01:00)
[2017-04-29] MEDS ORDERED: DEXAMETHASONE 4 MG/ML SDV (DECADRON) IV ONE (01:00)
[2017-04-29] MEDS ORDERED: RX-ONDANSETRON 4 MG ODT (ZOFRAN) PPK #4 PO STA (01:00)
[2017-04-29] MEDS ORDERED: HYDROcodone/APAP 5 MG/325 MG (LORTAB) TAB PO ONE (01:00)
[2017-04-29] MEDS ORDERED: NAPROXEN 250 MG (NAPROSYN) TABLET PO ONE (01:00)
[2017-04-29 01:11] VITALS: BP 101/67
--- NOTE | 2017-04-29 06:35 | Diagnostic Imaging Report ---
PROCEDURE: CT angiography of the chest with contrast. TECHNIQUE: Multiple contiguous axial images were obtained through the chest after uneventful bolus administration of intravenous contrast. Reconstructed CTA MIP acquisitions were also performed. INDICATION: Shortness of breath and chest pain. FINDINGS: There are no primary nodules, masses, or infiltrates. There is no pleural or pericardial fluid. There is no pneumothorax. There is no pathologically enlarged adenopathy in the chest. The thoracic aorta is normal in caliber and without evidence of dissection. There are no filling defects seen within the pulmonary arteries to suggest a pulmonary embolism. The visualized intraabdominal structures are unremarkable. There has been a previous cholecystectomy The osseous structures are unremarkable. IMPRESSION: No acute abnormality in the chest. Specifically, there is no evidence of a pulmonary embolism or aortic dissection. Dictated by: Dictated on workstation # [id number]
== END 2017-04-29 01:11 | disposition home or self-care (01) ==
LOC: EDUNIT# 23:16 → ER 23:18
DX: R09.1 Pleurisy (principal); F41.9 Anxiety disorder, unspecified; F32.9 Major depressive disorder, single episode, unspecified; F15.10 Other stimulant abuse, uncomplicated; F17.210 Nicotine dependence, cigarettes, uncomplicated; Z90.49 Acquired absence of other specified parts of digestive tract
CPT/HCPCS: 36415; 71275; 85379; 94664

== ENCOUNTER 2017-07-05 14:01 | Emergency (ER) | payer BC ==
[~2017-07-05] VITALS: Ht 160 cm; Wt 63.5 kg
[~2017-07-05 14:01] MED LIST changes: +NAPR500T PO
--- OUTSIDE RECORDS SUMMARY | 2017-07-05 14:09 | XMS REPORT | Continuity of Care Document ---
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 [facility] CD:[id number] Emergency [id number] Kyaden Conrad 06/19/2013 Active [facility] CD:[id number] Emergency [id number] Kayden Conrad 06/19/2013 [address] [facility] CD:[id number] Emergency [id number] Kayden Conrad 06/20/2013 [address] [facility] CD:[id number] Emergency [id number] Kayden Conrad 06/20/2013 [address] [facility] CD:[id number] Emergency [id number] Zaid Henriquez 06/21/2013 06/21/2013 Active [place]. [facility] CD:[id number] Emergency [id number] Nancy Macdonald 07/08/2013 07/08/2013 Active [place]. [facility] CD:[id number] Emergency [id number] Evgeny Adrian 07/28/2013 07/28/2013 Active [facility] Procedures Plan of Care Social History Assessment and Plan Family History Value Date Source Advance Directives Order Name Results Value Date Source
--- NOTE | 2017-07-05 14:22 | ED GU-Female ---
General Chief Complaint: Skin/Wound Problems Stated Complaint: CUT ON LABIA,SWOLLEN SORENESS Nursing Triage Note: ARRIVED VIA AMB TO ROOM 09. STATES ON SAT SHE CUT HERSELF WHILE SHAVING HER PRIVATES. REPORTS SWELLING AND PAIN IN THIS AREA. Nursing Sepsis Screen: No Definite Risk Source: patient, family (grandother) Exam Limitations: no limitations History of Present Illness Time seen by provider: 14:22 Initial Comments 27 yo female patient presents to the ED with c/o swelling and pain to the labia after shaving on Monday. Denies fevers, chills, dsch, bleeding. Timing/Duration: other (onset Monday.) Severity/Quality: moderate Location: other (labia) Activities at Onset: other (after shaving her genitals) Prior Genitourinary Problems: recent trauma (recently cut her genitals shaving. ) Sexual [place] History: less than 2 months ago, single partner Modifying Factors: Worsens With Movement, Worsens With Palpation Allergies and Home Medications Allergies Coded Allergies: Penicillins (Verified Allergy, Unknown, 07/14/15) Home Medications Ciprofloxacin HCl 500 Mg Tablet, 500 MG PO BID, #20 Ref 0 Prescribed by: AMY SPENCE on 07/05/177 Metronidazole 500 Mg Tablet, 500 MG PO TID, #30 Ref 0 Prescribed by: AMY SPENCE on 07/05/177 Constitutional: No chills, No fever, No malaise Respiratory: no symptoms reported Cardiovascular: no symptoms reported Gastrointestinal: No abdominal pain, No constipation, No diarrhea, No nausea, No vomiting Genitourinary: see HPI, denies discharge, denies dysuria, denies frequency, denies flank pain, denies hematuria, pain Musculoskeletal: no symptoms reported Skin: see HPI Psychiatric/Neurological: No Symptoms Reported All Other Systemes Reviewed Negative Unless Noted: Yes (Negative excepted noted.) Past Vfvobih-Zwpnax-Dekrkt Hx Patient Social History Alcohol Beverage of Choice: Other Type Used: Cigarettes 2nd Hand Smoke Exposure: Yes Recent Foreign Travel: No Contact w/Someone Who Travel: No Recent Infectious Disease Expo: No Recent Hopitalizations: No Immunizations Up To Date Tetanus Booster (TDap): More than 5yrs PED Vaccines UTD: No Date of Influenza Vaccine: Jul 17, 2015 Seasonal Allergies Seasonal Allergies: No Surgeries History of Surgeries: Yes Surgeries: Adenoidectomy, Appendectomy, Gallbladder Respiratory History of Respiratory Disorde: No Cardiovascular History of Cardiac Disorders: Yes (LOW HEART RATE) Neurological History of Neurological Disord: No Reproductive System Hx Reproductive Disorders: No Sexually 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Tricamonas, Gonnorhea) HIV/AIDS: No Female Reproductive Disorders: Denies Gastrointestinal History of Gastrointestinal Di: No Gastrointestinal Disorders: Irritable Bowel Musculoskeletal History of Musculoskeletal Dis: No Endocrine History of Endocrine Disorders: No Cancer History of Cancer: No Psychosocial History of Psychiatric Problem: Yes (Borderline personality disorder, methamphetamine abuse) Behavioral Health Disorders: Anxiety, Personality Disorder, Depression Integumentary History of Skin or Integumenta: No Blood Transfusions History of Blood Disorders: No Adverse Reaction to a Blood Tr: No Reviewed Nursing Assessment Reviewed/Agree w Nursing PMH: Yes Family Medical History Significant Family History: No Pertinent Family Hx Family Medial History: Hypertension 19 FATHER Seizure disorder G8 BROTHER Thyroid disease G8 SISTER Physical Exam Vital Signs Vital Sign - Last 12Hours 07/05/17 14:16 Temp 98.0 Pulse 67 Resp 16 B/P (MAP) 111/85 Pulse Ox 98 Capillary Refill : Less Than 3 Seconds General Appearance: WD/WN, no apparent distress Cardiovascular: regular rate, rhythm, no murmur Respiratory: lungs clear, normal breath sounds, no respiratory distress, no accessory muscle use Gastrointestinal: normal bowel sounds, non tender, soft, no organomegaly Pelvic: other (mild swelling and moderate tenderness to the pubis with a light pink blush. no open wound or drainage noted.) Extremities: normal capillary refill Neurologic/Psychiatric: alert, normal mood/affect, oriented x 3 Skin: normal color, warm/dry, other (mild swelling and moderate tenderness to the pubis with a light pink blush. no open wound or drainage noted.) I&D : Site: clitoris Blade Size: 11 I & D Procedure: betadine prep, sterile drapes applied Packing/Drain: 1/ [place] Drain Progress approximately 4 cc purulent dsch noted. blood loss minimal. radha secured with a 4-0 prolene. Progress/Results/Core Measures Results/Orders My Orders Orders - AMY SPENCE Morphine Injection (Morphine Injection (07/05/17 14:31) Ketamine Injection (Ketalar Injection) (07/05/17 15:24) Wound Culture (07/05/17 16:03) Midazolam Injection (Versed Injection) (07/05/17 16:45) Medications Given in ED Current Medications Medications Dose Ordered Sig/Eloy Route Start Time Stop Time Status Last Admin Dose Admin Ketamine HCl 200 mg ONCE ONCE IM 07/05/17 15:45 07/05/17 15:46 DC 07/05/17 15:35 200 MG Midazolam HCl 2 mg ONCE ONCE IM 07/05/17 16:45 07/05/17 16:46 DC 07/05/17 16:41 2 MG Vital Signs/I&O Vital Sign - Last 12Hours 07/05/17 14:16 Temp 98.0 Pulse 67 Resp 16 B/P (MAP) 111/85 Pulse Ox 98 Blood Pressure Mean: 94 Departure Impression Impression: Primary Impression: Abscess Disposition: 01 HOME, SELF-CARE Condition: Improved Departure-Patient Inst. Decision time for Depature: 14:49 Referrals: NO,LOCAL PHYSICIAN (PCP/Family) Primary Care Physician Patient Instructions: Abscess Incision and Drainage (DC) Add. Discharge Instructions: All discharge instructions reviewed with patient and/or family. Voiced understanding. Medications as instructed. Tylenol Extra Strength over-the- counter as directed for pain. Ibuprofen 800 mg by mouth every 8 hours as needed for pain. Shower with antibacterial soap. Avoid shaving. Follow-up with your family practitioner of choice for recheck and drain removal as an outpatient this week or early next week. Call for appointment time. If unable to be seen by a family practitioner, you may return to the ED in 1 wk for drain removal. Return to the emergency department for worsened symptoms, redness, fever, drainage, or any other concerns. 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
[2017-07-05] MEDS ORDERED: morphine INJ 10 MG/ML 1ML (SYR OR VIAL) IM STA (14:31)
[2017-07-05] MEDS ORDERED: KETAMINE HCL 100 MG/ML 5 ML VIAL ONE (15:24)
[2017-07-05] MEDS ORDERED: KETAMINE HCL 100 MG/ML 5 ML VIAL IM ONE (15:45)
[2017-07-05] MEDS ORDERED: CIPR500T4 PO (15:57)
[2017-07-05] MEDS ORDERED: METR500T21 PO (15:57)
[2017-07-05] MEDS ORDERED: MIDAZOLAM 2 MG/2 ML (VERSED) VIAL IM ONE (16:45)
[2017-07-05] MEDS ORDERED: TRAM50TA2 PO (17:07)
[2017-07-05 17:30] VITALS: BP 116/70
== END 2017-07-05 17:30 | disposition home or self-care (01) ==
LOC: EDUNIT# 14:01 → ER 14:04
DX: N76.4 Abscess of vulva (principal); F41.9 Anxiety disorder, unspecified; F60.9 Personality disorder, unspecified; F32.9 Major depressive disorder, single episode, unspecified; K58.9 Irritable bowel syndrome, unspecified; Z77.22 Contact with and (suspected) exposure to environmental tobacco smoke (acute) (chronic); Z90.49 Acquired absence of other specified parts of digestive tract
CPT/HCPCS: 87070; 87205; 96372; 99284

== ENCOUNTER 2017-07-15 14:38 | Emergency (ER) | payer BC ==
[~2017-07-15] VITALS: Ht 160 cm; Wt 63.5 kg
[~2017-07-15 14:38] MED LIST changes: +CIPR500T4 PO; +TRAM50TA2 PO
--- OUTSIDE RECORDS SUMMARY | 2017-07-15 14:44 | XMS REPORT | Continuity of Care Document ---
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 Immunizations Results Vital Signs Encounters Location Location Details Encounter Type Encounter Number Reason For Visit Attending Provider ADM Date DC Date Status Source [facility] [id number] Emergency [id number] Evgeny Campbell 05/05/2013 05/05/2013 Active [employer] [facility] CD:115859 Emergency [id number] ROCK FISHER 05/31/2013 Active [employer]. [facility] CD:691272 Emergency [id number] Kayden Conrad 06/19/2013 Active [employer] [facility] CD:184381 Emergency [id number] Kayden Conrad 06/19/2013 Active [employer] [facility] CD:590728 Emergency [id number] Kayden Conrad 06/20/2013 Active [employer] [facility] CD:252010 Emergency [id number] Kayden Conrad 06/20/2013 Active [employer] [facility] CD:938159 Emergency [id number] Zaid Henriquez 06/21/2013 06/21/2013 Active [employer]. [facility] CD:526356 Emergency [id number] Nancy Macdonald 07/08/2013 07/08/2013 Active [employer]. [facility] CD:838182 Emergency [id number] Evgeny Campbell 07/28/2013 07/28/2013 Active [employer], [facility] Procedures Plan of Care Social History Assessment and Plan Family History Value Date Source Advance Directives Order Name Results Value Date Source
[2017-07-15 14:50] VITALS: BP 112/69
--- NOTE | 2017-07-15 14:55 | ED Integumentary General ---
General Stated Complaint: VAGINAL ABSCESS Source: patient, family Exam Limitations: no limitations History of Present Illness Time seen by provider: 14:50 Initial Comments This 27-year-old female presents with a complaint that her recent abscess which is located over the clitoral the above her vagina is reaccumulating after the drain inadvertently fell out. The patient's abscess was felt to have been generated by a cut that she had while she was shaving approximately 2 weeks ago approximately 3-4 days later (10 days) and abscess develop that precipitated the patient's emergency department evaluation. The abscess was incised, the patient had a drain placed, was placed on Cipro and Flagyl. The patient completed her antibiotics. The drain fell out and the abscess reaccumulated over the last several days. Allergies and Home Medications Allergies Coded Allergies: Penicillins (Verified Allergy, Unknown, 07/14/15) Home Medications Ciprofloxacin HCl 500 Mg Tablet, 500 MG PO BID, #20 Ref 0 Prescribed by: AMY SPENCE on 07/05/17 1557 Metronidazole 500 Mg Tablet, 500 MG PO TID, #30 Ref 0 Prescribed by: AMY SPENCE on 07/05/17 1557 Tramadol HCl 50 Mg Tablet, 50 MG PO Q6H PRN for pain, #10 Ref 0 Prescribed by: AMY SPENCE on 07/05/17 1707 Constitutional: No chills, No fever EENTM: No hearing loss, No vision loss Respiratory: No cough Cardiovascular: No chest pain Gastrointestinal: No abdominal pain, No diarrhea, No nausea, No vomiting Genitourinary: see HPI, No dysuria, No frequency Musculoskeletal: no symptoms reported Skin: other (reaccumulating and abscess over the clitoral finley.) Psychiatric/Neurological: No Symptoms Reported Endocrine: No Symptoms Reported Hematologic/Lymphatic: No Symptoms Reported Past Rtcpbqq-Mmqkic-Klwbey Hx Patient Social History Alcohol Beverage of Choice: Other Type Used: Cigarettes 2nd Hand Smoke Exposure: Yes Recent Foreign Travel: No Contact w/Someone Who Travel: No Recent Hopitalizations: No Immunizations Up To Date Tetanus Booster (TDap): More than 5yrs PED Vaccines UTD: No Date of Influenza Vaccine: Jul 17, 2015 Seasonal Allergies Seasonal Allergies: No Surgeries History of Surgeries: Yes Surgeries: Adenoidectomy, Appendectomy, Gallbladder Respiratory History of Respiratory Disorde: No Cardiovascular History of Cardiac Disorders: Yes (LOW HEART RATE) Neurological History of Neurological Disord: No Reproductive System Hx Reproductive Disorders: No Sexually 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Tricamonas, Gonnorhea) HIV/AIDS: No Female Reproductive Disorders: Denies Gastrointestinal History of Gastrointestinal Di: No Gastrointestinal Disorders: Irritable Bowel Musculoskeletal History of Musculoskeletal Dis: No Endocrine History of Endocrine Disorders: No Cancer History of Cancer: No Psychosocial History of Psychiatric Problem: Yes (Borderline personality disorder, methamphetamine abuse) Behavioral Health Disorders: Anxiety, Personality Disorder, Depression Integumentary History of Skin or Integumenta: No Blood Transfusions History of Blood Disorders: No Adverse Reaction to a Blood Tr: No Family Medical History Significant Family History: No Pertinent Family Hx Family Medial History: Hypertension 19 FATHER Seizure disorder G8 BROTHER Thyroid disease G8 SISTER Physical Exam Vital Signs Vital Sign - Last 12Hours 07/15/17 14:42 Temp 97.2 Pulse 77 Resp 18 B/P (MAP) 112/69 Pulse Ox 98 O2 Delivery Room Air Capillary Refill : General Appearance: WD/WN, no apparent distress HEENT: normal ENT inspection Neck: normal inspection Cardiovascular: regular rate, rhythm Respiratory: no respiratory distress Gastrointestinal: soft Back: normal inspection Extremities: normal range of motion Neurologic/Psychiatric: no motor/sensory deficits Skin: normal color, warm/dry, other (there is a 3-4 cm area of induration just above the clitoris. There is a healing incision where the patient's previous incision and drainage was performed.) Skin Problem Location: other (supra-clitoral area.) Skin Problem Character: abscess Progress/Results/Core Measures Results/Orders My Orders Orders - DEMETRIA MASON MD Lidocaine 1% Injection (Xylocaine 1% Inj (07/15/17 15:15) Medications Given in ED Current Medications Medications Dose Ordered Sig/Eloy Route Start Time Stop Time Status Last Admin Dose Admin Lidocaine HCl 20 ml ONCE ONCE INJ 07/15/17 15:15 07/15/17 15:16 DC 07/15/17 15:14 20 ML Vital Signs/I&O Vital Sign - Last 12Hours 07/15/17 14:42 Temp 97.2 Pulse 77 Resp 18 B/P (MAP) 112/69 Pulse Ox 98 O2 Delivery Room Air Progress Note : Time: 14:54 Progress Note 14:55 Examination demonstrates a 3 cm in diameter area of induration with possible fluctuance. This is located just deep to the patient's clitoral finley. 3.35 pm After explanation of the procedure and with the patient's approval I created an incision with a number 11 blade into the indurated area of I thought could represent a residual abscess just superior to the clitoris. 1 percent Xylocaine and then used for local anesthesia. I placed a small Peg drain into the incision and drainage site and secured it with interrupted 4-0 chromic. There did not appear to be any significant amount of purulent drainage. I believe that the abscess may have essentially resolved and there was just some residual indurated tissue that is still resolving. Departure Impression Impression: Primary Impression: Abscess Disposition: 01 HOME, SELF-CARE Condition: Improved Departure-Patient Inst. Decision time for Depature: 15:38 Referrals: NO,LOCAL PHYSICIAN (PCP) Primary Care Physician Patient Instructions: Abscess Incision and Drainage (DC) Add. Discharge Instructions: Bactrim as prescribed. Clean the area gently with soap and water each day. The Dunn drain and the absorbable suture should both fall out approximately 3 -5 days. Return if there are any further problems or questions. DEMETRIA MASON MD Jul 15, 2017 14:55
[2017-07-15] MEDS ORDERED: LIDOCAINE 1% INJ 20 ML (XYLOCAINE) VIAL INJ ONE (15:15)
== END 2017-07-15 14:50 | disposition home or self-care (01) ==
LOC: EDUNIT# 14:38 → ER 14:40
DX: N76.4 Abscess of vulva (principal); F32.9 Major depressive disorder, single episode, unspecified; F41.9 Anxiety disorder, unspecified; Z77.22 Contact with and (suspected) exposure to environmental tobacco smoke (acute) (chronic); Z90.49 Acquired absence of other specified parts of digestive tract; Z87.19 Personal history of other diseases of the digestive system

== ENCOUNTER 2017-08-01 02:32 | Emergency (ER) | payer BC ==
[~2017-08-01] VITALS: Ht 160 cm; Wt 66.7 kg
--- OUTSIDE RECORDS SUMMARY | 2017-08-01 02:38 | XMS REPORT | Continuity of Care Document ---
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 Immunizations Results Vital Signs Encounters Location Location Details Encounter Type Encounter Number Reason For Visit Attending Provider ADM Date DC Date Status Source [facility] [id number] Emergency [id number] Evgeny Campbell 05/05/2013 05/05/2013 Active [facility] [id number] Emergency [id number] ROCK FISHER 05/31/2013 Active [facility]. [facility] [id number] Emergency [id number] Kayden Conrad 06/19/2013 Active [employer] [facility] [id number] Emergency [id number] Kayden Conrad 06/19/2013 Active [facility] [facility] [facility] [id number] Emergency [id number] Kayden Conrad 06/20/2013 Active [employer] [facility] [id number] Emergency [id number] Kayden Conrad 06/20/2013 Active [facility] [id number] Emergency [id number] Zaid Henriquez 06/21/2013 06/21/2013 Active [facility]. [facility] [id number] Emergency [id number] Nancy Macdonald 07/08/2013 07/08/2013 Active [facility]. [facility] [id number] Emergency [id number] Evgeny Campbell 07/28/2013 07/28/2013 Active [facility], [facility] Procedures Plan of Care Social History Assessment and Plan Family History Value Date Source Advance Directives Order Name Results Value Date Source
[2017-08-01] MEDS ORDERED: FAMOTIDINE 20MG/2ML IV (PEPCID) IVP ONE (03:00)
[2017-08-01] MEDS ORDERED: methylPREDNISolone 125 MG (Solu-MEDROL) VIAL IVP ONE (03:00)
[2017-08-01] MEDS ORDERED: diphenhydrAMINE 50 MG/ML INJ (BENADRYL) IVP ONE (03:00)
--- NOTE | 2017-08-01 03:10 | ED Integumentary General ---
General Chief Complaint: Allergic Reaction Stated Complaint: POSS ALLERGIC REACTION Source: patient History of Present Illness Time seen by provider: 02:52 Initial Comments PT ARRIVES VIA POV FROM HOME C/O HIVES--BEGAN AROUND 0230 STATES SHE DRANK A [place] TEA, PURCHASED AT [employer] AROUND 0030. OTHERWISE NO NEW FOODS/DRINKS, PRODUCTS OR EXPOSURES HAS HAD MILDER HIVES IN THE PAST, FROM UNKNOWN CAUSE NO DIFFICULTY BREATHING, TALKING OR SWALLOWING, AND NO WHEEZING NO SWELLING ANYWHERE PCP: [facility] Allergies and Home Medications Allergies Coded Allergies: Penicillins (Verified Allergy, Unknown, 07/14/15) ciprofloxacin (Verified Adverse Reaction, Intermediate, hives, 08/01/17) Home Medications No Active Prescriptions or Reported Meds Constitutional: no symptoms reported EENTM: no symptoms reported Respiratory: no symptoms reported Cardiovascular: no symptoms reported Gastrointestinal: no symptoms reported Genitourinary: no symptoms reported Musculoskeletal: no symptoms reported Skin: see HPI, pruritus, rash Psychiatric/Neurological: No Symptoms Reported Endocrine: No Symptoms Reported Hematologic/Lymphatic: No Symptoms Reported Past Fgfcicy-Dymbnj-Ylfucg Hx Patient Social History Alcohol Use: Occasionally Uses Alcohol Beverage of Choice: Other Recreational Drug Use: Yes (METH, COCAINE, THC. ) Smoking Status: Current Everyday Smoker (1/2 PPD) Type Used: Cigarettes 2nd Hand Smoke Exposure: Yes Recent Foreign Travel: No Contact w/Someone Who Travel: No Recent Hopitalizations: No Immunizations Up To Date Tetanus Booster (TDap): More than 5yrs PED Vaccines UTD: No Date of Influenza Vaccine: Jul 17, 2015 Seasonal Allergies Seasonal Allergies: No Surgeries History of Surgeries: Yes Surgeries: Adenoidectomy, Appendectomy, Gallbladder Respiratory History of Respiratory Disorde: No Cardiovascular History of Cardiac Disorders: Yes (LOW HEART RATE) Neurological History of Neurological Disord: No Reproductive System Hx Reproductive Disorders: Yes Sexually 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CHLAMYDIA, TRICHOMONAS, GONORRHEA) HIV/AIDS: No Female Reproductive Disorders: Denies, Pelvic Inflammatory Dis Genitourinary History of Genitourinary Disor: No Gastrointestinal History of Gastrointestinal Di: Yes Gastrointestinal Disorders: Chronic Constipation, Irritable Bowel Musculoskeletal History of Musculoskeletal Dis: No Endocrine History of Endocrine Disorders: No HEENT History of HEENT Disorders: No Cancer History of Cancer: No Psychosocial History of Psychiatric Problem: Yes (Borderline personality disorder, methamphetamine abuse) Behavioral Health Disorders: Anxiety, Personality Disorder, Depression Integumentary History of Skin or Integumenta: No Blood Transfusions History of Blood Disorders: No Adverse Reaction to a Blood Tr: No Family Medical History Family Medial History: Hypertension 19 FATHER Seizure disorder G8 BROTHER Thyroid disease G8 SISTER Physical Exam Vital Signs Vital Sign - Last 12Hours 08/01/17 02:45 Temp 97.8 Pulse 68 Resp 20 B/P (MAP) 114/71 Pulse Ox 100 O2 Delivery Room Air Capillary Refill : General Appearance: WD/WN, no apparent distress, other (CONSTANT MOVEMENTS, MALODOROUS) HEENT: PERRL/EOMI, normal ENT inspection, other (NO SWELLING TO LIPS, TONGUE, POSTERIOR PHARYNX/UVULA VOICE NORMAL.POOR DENTITION) Neck: normal inspection Cardiovascular: regular rate, rhythm, no murmur Respiratory: normal breath sounds, no respiratory distress, no accessory muscle use, No stridor Gastrointestinal: normal bowel sounds, non tender, soft 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 ALL OTHER AREAS OF BODY ARE SPARED. ), tattoos/piercings (TATTOOS) Progress/Results/Core Measures Results/Orders My Orders Orders - KATIE AVILA DO Saline Lock/Iv-Start (08/01/17 02:52) Methylprednisolone Sod Succ (Solu-Medrol (08/01/17 03:00) Diphenhydramine Injection (Benadryl Inje (08/01/17 03:00) Famotidine Injection (Pepcid Injection) (08/01/17 03:00) Medications Given in ED Current Medications Medications Dose Ordered Sig/Eloy Route Start Time Stop Time Status Last Admin Dose Admin Diphenhydramine HCl 50 mg ONCE ONCE IVP 08/01/17 03:00 08/01/17 03:01 DC 08/01/17 03:05 50 MG Famotidine 40 mg ONCE ONCE IVP 08/01/17 03:00 08/01/17 03:01 DC 08/01/17 03:05 40 MG Methylprednisolone Sodium Succinate 125 mg ONCE ONCE IVP 08/01/17 03:00 08/01/17 03:01 DC 08/01/17 03:05 125 MG Vital Signs/I&O Vital Sign - Last 12Hours 08/01/17 02:45 Temp 97.8 Pulse 68 Resp 20 B/P (MAP) 114/71 Pulse Ox 100 O2 Delivery Room Air Progress Note : Progress Note HIVES FADING AND PT IS NO LONGER ITCHING AT TIME OF DISMISSAL Departure Impression Impression: Primary Impression: Urticaria of unknown origin Disposition: HOME, SELF-CARE Condition: Improved Departure-Patient Inst. Referrals: [facility] Patient Instructions: Sarai (DC) Add. Discharge Instructions: CLARITIN 10 MG IN AM, BENADRYL 50 MG IN PM NEEDED FOR RASH AND ITCHING LOTS OF CLEAR LIQUIDS AVOID ANY NEW FOODS, DRINKS, OR PRODUCTS FOLLOW UP WITH [facility] TOMORROW IF NO BETTER, RETURN TO ER IF WORSE All discharge instructions reviewed with patient and/or family. Voiced understanding. Scripts No Active Prescriptions or Reported Meds KATIE AVILA DO Aug 01, 2017 03:10
[2017-08-01] MEDS ORDERED: PRD10T PO ×2 (03:14→03:45)
[2017-08-01 03:51] VITALS: BP 114/71
== END 2017-08-01 03:51 | disposition home or self-care (01) ==
LOC: EDUNIT# 02:32 → ER 02:34
DX: L50.9 Urticaria, unspecified (principal); F41.9 Anxiety disorder, unspecified; F32.9 Major depressive disorder, single episode, unspecified; F12.10 Cannabis abuse, uncomplicated; F14.10 Cocaine abuse, uncomplicated; F17.210 Nicotine dependence, cigarettes, uncomplicated; Z90.49 Acquired absence of other specified parts of digestive tract; Z87.19 Personal history of other diseases of the digestive system

== ENCOUNTER 2017-10-10 18:35 | Emergency (ER) | payer BC ==
[~2017-10-10] VITALS: Ht 160 cm; Wt 66.7 kg
[~2017-10-10 18:35] MED LIST changes: +AZIT250T12 PO; -AZIT250T5 PO; +NAPR-1071 PO; -NAPR500T PO; +PRD10T PO
[2017-10-10] MEDS ORDERED: CEPH-507 PO (18:57)
--- NOTE | 2017-10-10 18:57 | ED EENT ---
History of Present Illness General Stated Complaint: L EAR BLEEDING Source: patient Exam Limitations: no limitations History of Present Illness Date Seen by Provider: Oct 10, 2017 Time Seen by Provider: 18:52 Initial Comments To ER with left ear drainage. Patient developed severe left ear pain last night. The pain then suddenly resolved and she had initially clear, then yellow and now bloody drainage from the left ear. Timing/Duration: abrupt Severity: moderate Location: ear (L) Associated Symptoms: cough Allergies and Home Medications Allergies Coded Allergies: Penicillins (Verified Allergy, Unknown, 07/14/15) ciprofloxacin (Verified Adverse Reaction, Intermediate, hives, 08/01/17) Home Medications Cephalexin 500 Mg Capsule, 500 MG PO QID, #28 Prescribed by: CLAY JOSE on 10/10/17 5023 Review of Systems Constitutional: see HPI, No chills, No fever Eyes: No Symptoms Reported Ears: See HPI, Pain, Bloody Discharge, Clear Discharge, Purulent Discharge Nose: see HPI Mouth: no symptoms reported Throat: no symptoms reported Respiratory: no symptoms reported Cardiovascular: no symptoms reported Musculoskeletal: no symptoms reported Past Bsinqsz-Mwakbg-Pvadiy Hx Patient Social History Alcohol Beverage of Choice: Other Type Used: Cigarettes 2nd Hand Smoke Exposure: Yes Recent Foreign Travel: No Contact w/Someone Who Travel: No Recent Hopitalizations: No Immunizations Up To Date Tetanus Booster (TDap): More than 5yrs PED Vaccines UTD: No Date of Influenza Vaccine: Jul 17, 2015 Seasonal Allergies Seasonal Allergies: No Surgeries History of Surgeries: Yes Surgeries: Adenoidectomy, Appendectomy, Gallbladder Respiratory History of Respiratory Disorde: No Cardiovascular History of Cardiac Disorders: Yes (LOW HEART RATE) Neurological History of Neurological Disord: No Reproductive System Hx Reproductive Disorders: Yes Sexually 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CHLAMYDIA, TRICHOMONAS, GONORRHEA) HIV/AIDS: No Female Reproductive Disorders: Denies, Pelvic Inflammatory Dis Genitourinary History of Genitourinary Disor: No Gastrointestinal History of Gastrointestinal Di: Yes Gastrointestinal Disorders: Chronic Constipation, Irritable Bowel Musculoskeletal History of Musculoskeletal Dis: No Endocrine History of Endocrine Disorders: No HEENT History of HEENT Disorders: No Cancer History of Cancer: No Psychosocial History of Psychiatric Problem: Yes (Borderline personality disorder, methamphetamine abuse) Behavioral Health Disorders: Anxiety, Personality Disorder, Depression Integumentary History of Skin or Integumenta: No Blood Transfusions History of Blood Disorders: No Adverse Reaction to a Blood Tr: No Family Medical History Family Medial History: Hypertension 19 FATHER Seizure disorder G8 BROTHER Thyroid disease G8 SISTER Physical Exam Vital Signs Vital Sign - Last 12Hours 10/10/17 18:54 Temp 97.7 Pulse 82 Resp 18 B/P (MAP) 112/65 (81) Pulse Ox 98 O2 Delivery Room Air General Appearance: WD/WN, no apparent distress Eyes: bilateral eye normal inspection, bilateral eye PERRL, bilateral eye EOMI Ears: left ear canal normal (drainage within the left ear canal that is serosanguineous), left ear TM normal (erythematous tympanic membrane without obvious perforation visualized), bilateral ear auricle normal Neck: non-tender, full range of motion Respiratory: no respiratory distress, no accessory muscle use Gastrointestinal: normal bowel sounds Neurologic/Psychiatric: alert, normal mood/affect, oriented x 3 Skin: normal color, warm/dry Progress/Results/Core Measures Results/Orders Vital Signs/I&O Vital Sign - Last 12Hours 10/10/17 10/10/17 18:54 19:01 Temp 97.7 97.7 Pulse 82 82 Resp 18 18 B/P (MAP) 112/65 (81) Pulse Ox 98 98 O2 Delivery Room Air Departure Impression Impression: Primary Impression: Tympanic membrane perforation, nontraumatic Additional Impression: Acute otitis media Disposition: 01 HOME, SELF-CARE Condition: Stable/Unchanged Departure-Patient Inst. Decision time for Depature: 18:55 Referrals: NO,LOCAL PHYSICIAN (PCP) Primary Care Physician Patient Instructions: Ear Infections (Otitis Media) Add. Discharge Instructions: 1. Medication as directed 2. Return to ER for any concerns such as fevers or worsening pain. Start the antibiotic tonight 3. Keep water out of the ear when showering. You can purchase wax earplugs at [facility] to help keep water out of Scripts Cephalexin (Keflex) 500 Mg Capsule 500 MG PO QID, #28 CAP Prov: CLAY JOSE APRN 10/10/17 Work/School Note: Work Release Form Date Seen in the Emergency Department: Oct 10, 2017 Return to Work: Oct 12, 2017 CLAY JOSE APRN Oct 10, 2017 18:57
[2017-10-10 19:01] VITALS: BP 112/65
== END 2017-10-10 19:00 | disposition home or self-care (01) ==
LOC: EDUNIT# 18:35 → ER 18:36
DX: H66.92 Otitis media, unspecified, left ear (principal); F41.9 Anxiety disorder, unspecified; F32.9 Major depressive disorder, single episode, unspecified; F60.9 Personality disorder, unspecified; F12.10 Cannabis abuse, uncomplicated; F17.210 Nicotine dependence, cigarettes, uncomplicated; Z87.19 Personal history of other diseases of the digestive system; Z90.49 Acquired absence of other specified parts of digestive tract; Z90.89 Acquired absence of other organs
CPT/HCPCS: 99282